=== PATIENT | female | born 1980 | race Caucasian/White ===

== ENCOUNTER → 2016-04-10 | Outpatient (CLI) | payer OTHER ==
[2016-04-10 16:01] LABS: Prolactin 7.7 ng/mL (3.0-18.6)
== END | disposition home or self-care (01) ==
LOC: LABWHC1 14:59
PROVIDERS: ATTEND Obstetrics & Gynecology
DX: O92.6 Galactorrhea (principal); Z3A.00 Weeks of gestation of pregnancy not specified
CPT/HCPCS: 36415; 84146; 84403; 84439; 84443

== ENCOUNTER 2016-06-14 16:57 | Emergency (ER) | payer OTHER ==
[2016-06-14] MEDS ORDERED: SODIUM CHLORIDE 0.9% 1,000 ML IV STA (17:23)
[2016-06-14] MEDS ORDERED: IPRATROPIUM-ALBUTEROL 3 ML NEB INHALATION STA (17:24)
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
[2016-06-14 17:41] LABS: Basophils # (A) 0.1 k/uL (0-0.2); Basophils % (A) 1 %; CH 29.3; CHCM 35.5; Eosinophils % (A) 1 %; HCT 42.5 % (34.0-46.0); HDW 2.99; HGB 14.4 gm/dL (11.4-16.0); Luc # (Auto) 0.23; Luc % (Auto) 4; Lymphocytes # (A) 1.8 k/uL (1.0-4.8); Lymphocytes % (A) 28 %; MCH 28.1 pg (25.0-35.0); MCHC 33.9 g/dL (31.0-37.0); MCV 82.9 fL (80.0-100.0); Monocytes # (A) 0.5 k/uL (0-1.0); Monocytes % (A) 7 %; Neutrophils # (A) 3.8 k/uL (1.3-7.7); Neutrophils % (A) 60 %; RBC 5.13 m/uL (3.80-5.40); RDW 13.1 % (11.5-15.5); WBC 6.4 k/uL (3.8-10.6); WBC (Perox) 6.34
[2016-06-14 17:49] LABS: Appearance,Urine Clear (Clear); Bilirubin,Urine Negative (Negative); Glucose,Urine (UA) Negative (Negative); Ketones,Urine Negative (Negative); Leukocyte Esterase,Urine Negative (Negative); Nitrite,Urine Negative (Negative); PH, Urine 6.5 (5.0-8.0); Protein,Urine Negative (Negative); Specific Gravity,Urine 1.009 (1.001-1.035); UA Billing (MACRO vs. MICRO) CHEM; Urobilinogen,Urine <2.0 mg/dL (<2.0)
[2016-06-14 17:54] LABS: Anion Gap 10 mmol/L; Blood Urea Nitrogen 8 mg/dL (7-17); Calcium 9.5 mg/dL (8.4-10.2); Carbon Dioxide 28 mmol/L (22-30); Chloride 101 mmol/L (98-107); Glucose 105 mg/dL (74-99); Magnesium 1.6 mg/dL (1.6-2.3); Non-African American GFR(MDRD) >60 (>60 ml/min/1.73 sqM); Potassium 4.4 mmol/L (3.5-5.1); Sodium 139 mmol/L (137-145)
[2016-06-14] MEDS ORDERED: KETOROLAC 30 MG/ML 1 ML VIAL IVP STA (18:10)
--- NOTE | 2016-06-14 18:52 | XR ---
EXAMINATION TYPE: XR chest 2V DATE OF EXAM: 06/14/2016 6:31 PM COMPARISON: NONE HISTORY: Tachycardia TECHNIQUE: Frontal and lateral views of the chest are obtained. FINDINGS: Heart and mediastinum are normal. Lungs are clear. Diaphragm is normal. There are no hilar masses. There is fusion surgery at the thoracolumbar junction. IMPRESSION: No active cardiopulmonary disease. Normal heart.
[2016-06-14] MEDS ORDERED: MAGNESIUM OXIDE 400 MG TAB PO STA (19:16)
[2016-06-14 19:33] VITALS: BP 116/68; PULSE 105; RESP 18; TEMP 97.3
== END 2016-06-14 19:42 | disposition home or self-care (01) ==
LOC: EC 16:57
DX: R00.0 Tachycardia, unspecified (principal); R07.89 Other chest pain; G89.29 Other chronic pain; M79.605 Pain in left leg; M79.604 Pain in right leg; F17.210 Nicotine dependence, cigarettes, uncomplicated; Z79.899 Other long term (current) drug therapy
CPT/HCPCS: 94640; 93005; 85379; 80048; 83735; 84484; 85025; 81003; 81025; 71020; 99285; 96374; 96361 ×2; J1885

== ENCOUNTER → 2016-08-06 | Outpatient (CLI) | payer OTHER ==
--- NOTE | 2016-08-06 09:36 | US ---
EXAMINATION TYPE: US abdomen complete DATE OF EXAM: 08/06/2016 8:27 AM COMPARISON: Renal ultrasound 08/14/2015 CLINICAL HISTORY: 35-year-old female with generalized abdominal pain. TECHNIQUE: Multiple sonographic images of the abdomen were obtained. FINDINGS: EXAM MEASUREMENTS: Liver Length: 13.5 cm Gallbladder Wall: 0.3 cm CBD: 0.9 cm Spleen: 9.7 cm Right Kidney: 10.0 x 4.2 x 4.2 cm Left Kidney: 10.4 x 4.3 x 4.4 cm Pancreas: Obscured by bowel gas Liver: Slight coarsened appearance could be on a technical basis. No focal lesion is seen. Gallbladder: No abnormal gallbladder distention, wall thickening, pericholecystic fluid, or shadowin g calculi. Evidence for sonographic Diego's sign: No CBD: Dilated. Spleen: wnl Right Kidney: No hydronephrosis Left Kidney: No hydronephrosis Upper IVC: Within normal limits Abd Aorta: Visualized portions appeared within normal limits IMPRESSION: 1. Coarsened appearance to the liver probably on a technical basis. Correlate to exclude nonspecific hepatocellular disease. 2. The bile duct is dilated. Correlate with alkaline phosphatase and bilirubin levels. ERCP or MRCP t o further evaluate as indicated. 3. No cholelithiasis or acute cholecystitis.
== END | disposition home or self-care (01) ==
LOC: RADUSWWP 08:06
PROVIDERS: ATTEND Family Medicine
DX: K83.8 Other specified diseases of biliary tract (principal); R10.9 Unspecified abdominal pain
CPT/HCPCS: 76700

== ENCOUNTER → 2016-08-15 | Outpatient (CLI) | payer OTHER ==
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
== END | disposition home or self-care (01) ==
LOC: RADMRIMAIN 16:19
PROVIDERS: ATTEND Psychiatry & Neurology Neurology
DX: M50.222 Other cervical disc displacement at C5-C6 level (principal); M54.5 Low back pain; Z98.890 Other specified postprocedural states
CPT/HCPCS: 72141; 72148

== ENCOUNTER 2016-09-16 22:08 | Emergency (ER) | payer OTHER ==
[2016-09-16 22:20] VITALS: RESP 18; TEMP 98.5
--- NOTE | 2016-09-16 22:45 | ED ---
Abdominal Pain HPI - General Chief Complaint: Abdominal Pain Stated Complaint: poss med reaction/abdominal pain Time Seen by Provider: 09/16/16 22:27 Source: patient Mode of arrival: ambulatory Limitations: no limitations - History of Present Illness Initial Comments: This patient is a 36-year-old woman who is complaining of abdominal pains that have been going on for 3 months. She describes to components to the abdominal pain. There is one type that is epigastric, burning, and intermittent. She states that she feels it is worse after she eats or after drinking certain things. She stopped drinking beer 2 weeks ago due to this pain. She also has been having some lower abdominal cramping and bloating that has been going on for number of months but worse the past couple of days. The patient did have some nausea and she vomited once last night but not today. Patient denies change in urination or bowel movements. She states that her last period was August 28 and that it was a little shorter than normal. MD Complaint: abdominal pain Onset/Timin -: month(s) Location: LLQ, RLQ, epigastric Migration to: no migration Severity: moderate Quality: fullness, burning Consistency: constant Improves With: nothing Worsens With: nothing Associated Symptoms: nausea, vomiting - Related Data LMP (females 10-50): 3 weeks Patient : No Home Medications Medication Instructions Recorded Confirmed HYDROcodone/APAP 10-325MG [[place] 1 tab PO BID PRN 09/16/16 09/16/16 10-325] Ibuprofen [Motrin] 600 mg PO Q8HR PRN 09/16/16 09/16/16 Multivitamins, Thera [Multivitamin 1 tab PO DAILY 09/16/16 09/16/16 (formulary)] Omeprazole 40 mg PO DAILY 09/16/16 09/16/16 Pregabalin [Lyrica] 150 mg PO BID 09/16/16 09/16/16 QUEtiapine [SEROquel] 200 mg PO HS 09/16/16 09/16/16 Previous Rx's Medication Instructions Recorded Dicyclomine [Bentyl] 20 mg PO QID #15 tablet 09/17/16 Allergies Allergy/AdvReac Type Severity Reaction Status Date / Time No Known Allergies Allergy Verified 09/16/16 22:54 Review of Systems ROS Statement: Those systems with pertinent positive or pertinent negative responses have been documented in the HPI. ROS Other: All systems not noted in ROS Statement are negative. Constitutional: Denies: fever, chills, weakness Respiratory: Denies: cough, dyspnea Cardiovascular: Denies: chest pain, palpitations, edema Gastrointestinal: Reports: as per HPI, abdominal pain, nausea, vomiting. Denies : diarrhea, constipation, hematemesis, melena, hematochezia Genitourinary: Denies: dysuria, hematuria, discharge, abnormal menses Musculoskeletal: Denies: back pain Skin: Denies: rash Neurological: Denies: headache, weakness, numbness Past Medical History Past Medical History: No Reported History Additional Past Medical History / Comment(s): insomnia, bilat leg nerve damage, pain arina legs to feet History of Any Multi-Drug Resistant Organisms: None Reported Past Surgical History: Back Surgery Additional Past Surgical History / Comment(s): titanium ernesto Past Anesthesia/Blood Transfusion Reactions: Motion Sickness Past Psychological History: ADD/ADHD Smoking Status: Current every day smoker Past Alcohol Use History: None Reported Additional Past Alcohol Use History / Comment(s): has smoked 10-15 years 10 cig/ day Past Drug Use History: None Reported - Past Family History Mother Family Medical History: No Reported History General Exam Limitations: no limitations General appearance: alert, in no apparent distress Head exam: Present: atraumatic, normocephalic Eye exam: Present: normal appearance. Absent: scleral icterus, conjunctival injection ENT exam: Present: normal oropharynx Respiratory exam: Present: normal lung sounds bilaterally. Absent: respiratory distress, wheezes, rales, rhonchi, stridor Cardiovascular Exam: Present: regular rate, normal rhythm, normal heart sounds. Absent: systolic murmur, diastolic murmur, rubs, gallop GI/Abdominal exam: Present: soft, normal bowel sounds. Absent: distended, tenderness, guarding, rebound, rigid, mass, pulsatile mass, hernia Extremities exam: Present: normal inspection, normal capillary refill. Absent: pedal edema, calf tenderness Back exam: Present: normal inspection. Absent: CVA tenderness (R), CVA tenderness (L) Skin exam: Present: warm, dry, intact, normal color. Absent: rash Course Vital Signs 09/16/16 22:17 Temperature 98.5 F Pulse Rate 98 Respiratory 18 Rate Blood Pressure 140/87 O2 Sat by Pulse 97 Oximetry Medical Decision Making - Lab Data Result diagrams: 09/16/16 22:30 09/16/16 22:30 Lab Results 09/16/16 09/16/16 09/16/16 Range/Units 22:30 22:30 22:45 WBC 5.2 (3.8-10.6) k/uL RBC 4.62 (3.80-5.40) m/uL Hgb 13.1 (11.4-16.0) gm/dL Hct 37.2 (34.0-46.0) % MCV 80.5 (80.0-100.0) fL MCH 28.3 (25.0-35.0) pg MCHC 35.1 (31.0-37.0) g/dL RDW 13.6 (11.5-15.5) % Plt Count 237 (150-450) k/uL Neutrophils % 48 % Lymphocytes % 36 % Monocytes % 8 % Eosinophils % 3 % Basophils % 1 % Neutrophils # 2.5 (1.3-7.7) k/uL Lymphocytes # 1.9 (1.0-4.8) k/uL Monocytes # 0.4 (0-1.0) k/uL Eosinophils # 0.1 (0-0.7) k/uL Basophils # 0.1 (0-0.2) k/uL Sodium 140 (137-145) mmol/L Potassium 3.8 (3.5-5.1) mmol/L Chloride 104 (98-107) mmol/L Carbon Dioxide 26 (22-30) mmol/L Anion Gap 10 mmol/L BUN 7 (7-17) mg/dL Creatinine 0.60 (0.52-1.04) mg/dL Est GFR (MDRD) Af Amer >60 (>60 ml/min/1.73 sqM) Est GFR (MDRD) Non-Af >60 (>60 ml/min/1.73 sqM) Glucose 99 (74-99) mg/dL Calcium 9.4 (8.4-10.2) mg/dL Total Bilirubin 0.4 (0.2-1.3) mg/dL AST 27 (14-36) U/L ALT 51 (9-52) U/L Alkaline Phosphatase 77 (38-126) U/L Total Protein 7.5 (6.3-8.2) g/dL Albumin 4.3 (3.5-5.0) g/dL Amylase 59 (30-110) U/L Lipase 80 (23-300) U/L Urine Color Yellow Urine Appearance Clear (Clear) Urine pH 6.5 (5.0-8.0) Ur Specific [place] 1.013 (1.001-1.035) Urine Protein Negative (Negative) Urine Glucose (UA) Negative (Negative) Urine Ketones Negative (Negative) Urine Blood Negative (Negative) Urine Nitrite Negative (Negative) Urine Bilirubin Negative (Negative) Urine Urobilinogen <2.0 (<2.0) mg/dL Ur Leukocyte Esterase Negative (Negative) Serum Alcohol <10 mg/dL Disposition Clinical Impression: Abdominal pain, Constipation Disposition: HOME SELF-CARE Condition: Good Instructions: Abdominal Pain (ED) Prescriptions: Dicyclomine [Bentyl] 20 mg PO QID #15 tablet Referrals: Matthew Nicolas MD [Primary Care Provider] - 1-2 days June Espinoza MD [STAFF PHYSICIAN] - 1-2 days
[2016-09-16] MEDS ORDERED: DICYCLOMINE 20 MG TAB PO STA (22:47)
[2016-09-16 22:57] LABS: Basophils # (A) 0.1 k/uL (0-0.2); Basophils % (A) 1 %; CHCM 36.1; Eosinophils # (A) 0.1 k/uL (0-0.7); Eosinophils % (A) 3 %; HCT 37.2 % (34.0-46.0); HDW 2.99; HGB 13.1 gm/dL (11.4-16.0); Luc # (Auto) 0.21; Luc % (Auto) 4; Lymphocytes # (A) 1.9 k/uL (1.0-4.8); Lymphocytes % (A) 36 %; MCH 28.3 pg (25.0-35.0); MCHC 35.1 g/dL (31.0-37.0); MCV 80.5 fL (80.0-100.0); Mean Platelet Volume 6.8; Monocytes # (A) 0.4 k/uL (0-1.0); Monocytes % (A) 8 %; Neutrophils # (A) 2.5 k/uL (1.3-7.7); Neutrophils % (A) 48 %; RBC 4.62 m/uL (3.80-5.40); RDW 13.6 % (11.5-15.5); WBC 5.2 k/uL (3.8-10.6)
[2016-09-16 23:08] LABS: ALT 51 U/L (9-52); AST 27 U/L (14-36); Alcohol <10 mg/dL; Alkaline Phosphatase 77 U/L (38-126); Amylase 59 U/L (30-110); Anion Gap 10 mmol/L; Blood Urea Nitrogen 7 mg/dL (7-17); Calcium 9.4 mg/dL (8.4-10.2); Carbon Dioxide 26 mmol/L (22-30); Chloride 104 mmol/L (98-107); Glucose 99 mg/dL (74-99); Non-African American GFR(MDRD) >60 (>60 ml/min/1.73 sqM); Potassium 3.8 mmol/L (3.5-5.1); Sodium 140 mmol/L (137-145); Total Bilirubin 0.4 mg/dL (0.2-1.3); Total Protein 7.5 g/dL (6.3-8.2)
[2016-09-16 23:22] LABS: Appearance,Urine Clear (Clear); Bilirubin,Urine Negative (Negative); Glucose,Urine (UA) Negative (Negative); Ketones,Urine Negative (Negative); Leukocyte Esterase,Urine Negative (Negative); Nitrite,Urine Negative (Negative); PH, Urine 6.5 (5.0-8.0); Protein,Urine Negative (Negative); Specific Gravity,Urine 1.013 (1.001-1.035); UA Billing (MACRO vs. MICRO) CHEM; Urobilinogen,Urine <2.0 mg/dL (<2.0)
--- NOTE | 2016-09-17 00:01 | XR ---
EXAM: XR Abdomen Complete, 2 or More Views CLINICAL HISTORY: Pain TECHNIQUE: Frontal view of the abdomen/pelvis with upright view of the abdomen. COMPARISON: X-ray dated 03/27/2015 FINDINGS: Intraperitoneal space: No free air. Gastrointestinal tract: Moderate stool noted throughout the colon. Nonobstructive bowel gas pattern. Organs: Punctate calcification within the lower right hemipelvis, likely a phlebolith. Bones/joints: Postsurgical changes are noted with the thoracolumbar spine. IMPRESSION: No acute findings.
[2016-09-17] MEDS ORDERED: PEG 3350-NA SULF,BICARB,CL/KCL 4,000 ML BOTTLE PO ONE (00:10)
[2016-09-17 00:25] VITALS: BP 135/87; PULSE 80
== END 2016-09-17 00:24 | disposition home or self-care (01) ==
LOC: EC 22:08
DX: K59.00 Constipation, unspecified (principal); R10.13 Epigastric pain; R11.2 Nausea with vomiting, unspecified; R10.31 Right lower quadrant pain; R10.32 Left lower quadrant pain; F17.210 Nicotine dependence, cigarettes, uncomplicated; Z79.899 Other long term (current) drug therapy
CPT/HCPCS: 36415; 74020; 80053; 80320; 81003; 82150; 83690; 85025; 87086; 99284

== ENCOUNTER → 2016-11-14 | Outpatient (CLI) | payer OTHER ==
--- NOTE | 2016-11-14 23:47 | MR ---
EXAMINATION TYPE: MR thoracic spine wo/w con DATE OF EXAM: 11/14/2016 COMPARISON: NONE HISTORY: Previous Surgery Multihance 20 CONTRAST: Standard multiplanar, multisequence MRI departmental protocol utilizing 12 mL intravenous MultiHance gadolinium contrast. FINDINGS: The thoracic vertebra have normal alignment. I see no compression fracture. There is abnorm al increased signal in the lower thoracic spinal cord at T11-T12 level. There is metal artifact from anterior fusion surgery at T11-12. There is posterior T11-12 disc herniation impinging on the spinal canal to some degree at the level of the first fluid signal. The remainder of the thoracic spinal can al appears normal. There is no paraspinal mass. Contrast images show no pathologic enhancement. Canal is narrowed to 7 m m at the T11-12 level. IMPRESSION: There is posterior disc herniation at T11-12 at the level of the left side anterior spinal fusion jose naz. There is resultant 7 mm spinal stenosis. 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 No fracture. Disc herniation appears wo rse than the MR scan of 08/15/2016. CT myelogram would be helpful for further evaluation if clinically indicated.
== END | disposition home or self-care (01) ==
LOC: RADMRIMAIN 11:41
PROVIDERS: ATTEND Psychiatry & Neurology Neurology
DX: M48.04 Spinal stenosis, thoracic region (principal); M51.24 Other intervertebral disc displacement, thoracic region; G95.89 Other specified diseases of spinal cord; Z98.1 Arthrodesis status
CPT/HCPCS: 72157; A9577

== ENCOUNTER → 2016-12-12 | Outpatient (CLI) | payer OTHER ==
[2016-12-12 18:08] LABS: Appearance,Urine Clear (Clear); Bilirubin,Urine Negative (Negative); Glucose,Urine (UA) Negative (Negative); Ketones,Urine Negative (Negative); Leukocyte Esterase,Urine Negative (Negative); Nitrite,Urine Negative (Negative); Protein,Urine Negative (Negative); Specific Gravity,Urine 1.004 (1.001-1.035); UA Billing (MACRO vs. MICRO) CHEM; Urobilinogen,Urine <2.0 mg/dL (<2.0)
--- NOTE | 2016-12-12 18:10 | US ---
EXAMINATION TYPE: US bladder DATE OF EXAM: 12/12/2016 COMPARISON: NONE CLINICAL HISTORY: R33.9 RETENTION OF URINE. UTI EXAM MEASUREMENTS: Volume:221.5 ml Post Void Residual Volume: 0 mL Patient emptied bladder completely IMPRESSION: The prevoid estimated bladder volume is 221 mL and there is satisfactory emptying after voiding. No bladder mass seen.
== END | disposition home or self-care (01) ==
LOC: RADUSWWP 16:22
PROVIDERS: ATTEND Family Medicine
DX: R33.9 Retention of urine, unspecified (principal); N39.0 Urinary tract infection, site not specified
CPT/HCPCS: 76857; 81003; 87086

== ENCOUNTER → 2017-02-12 | Outpatient (CLI) | payer OTHER ==
[2017-02-11 16:34] VITALS: BMI 21.9
[2017-02-12 12:53] VITALS: RESP 16
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
== END ==
LOC: PNWHC3 12:32
PROVIDERS: ATTEND Anesthesiology
DX: M51.26 Other intervertebral disc displacement, lumbar region (principal); Z79.891 Long term (current) use of opiate analgesic; Z79.899 Other long term (current) drug therapy
CPT/HCPCS: 99211

== ENCOUNTER 2017-02-19 09:46 | Inpatient (IN) | payer OTHER ==
[2017-02-19 11:24] LABS: Appearance,Urine Cloudy (Clear); Bacteria,Urine Rare /hpf; Bilirubin,Urine Negative (Negative); Glucose,Urine (UA) Negative (Negative); Ketones,Urine 1+ (Negative); Leukocyte Esterase,Urine Negative (Negative); Mucus,Urine Occasional /hpf; Nitrite,Urine Negative (Negative); Particle Count 12675; Protein,Urine 1+ (Negative); RBC,Urine 2 /hpf (0-5); Specific Gravity,Urine 1.023 (1.001-1.035); Squamous Epithelial Cell,Urine 8 /hpf (0-4); UA Billing (MACRO vs. MICRO) MICRO; Urobilinogen,Urine <2.0 mg/dL (<2.0); WBC,Urine 1 /hpf (0-5)
[2017-02-19 11:45] LABS: ALT 38 U/L (9-52); AST 43 U/L (14-36); Alkaline Phosphatase 77 U/L (38-126); Amylase 63 U/L (30-110); Anion Gap 11 mmol/L; Blood Urea Nitrogen 10 mg/dL (7-17); Calcium 9.6 mg/dL (8.4-10.2); Carbon Dioxide 23 mmol/L (22-30); Chloride 105 mmol/L (98-107); Glucose 92 mg/dL (74-99); Non-African American GFR(MDRD) >60 (>60 ml/min/1.73 sqM); Potassium 4.7 mmol/L (3.5-5.1); Sodium 139 mmol/L (137-145); Total Bilirubin 0.3 mg/dL (0.2-1.3); Total Protein 8.4 g/dL (6.3-8.2)
--- NOTE | 2017-02-19 11:45 | ED ---
General Adult HPI <Felipe Mims - Last Filed: 02/19/17 13:22> - General Source: patient, RN notes reviewed Mode of arrival: ambulatory Limitations: language barrier <Phillip Kelley - Last Filed: 02/19/17 13:29> - General Chief complaint: Abdominal Pain Stated complaint: LEFT SIDE PAIN, VOMITING X 1 WEEK Time Seen by Provider: 02/19/17 10:25 - History of Present Illness Initial comments: Patient is a 36-year-old female who presents emergency room today with a chief complaint of abdominal pain off-and-on over the last week. Patient does admit that seems to be worse after she eats. She states that she gets pain in the upper abdomen greatest on the right side. Patient admits to feeling nauseated and having vomiting. Admits to diarrhea. Denies any other complaints or symptoms. Patient denies any recent fever, chills, shortness of breath, chest pain, back pain, numbness or tingling, dysuria or hematuria, constipation, headaches or visual changes, or any other complaints. (Phillip Kelley) - Related Data Home Medications Medication Instructions Recorded Confirmed Multivitamins, Thera [Multivitamin 1 tab PO DAILY 09/16/16 02/19/17 (formulary)] Omeprazole 40 mg PO DAILY 09/16/16 02/19/17 Pregabalin [Lyrica] 150 mg PO BID 09/16/16 02/19/17 LORazepam [Ativan] 0.5 mg PO BID 02/11/17 02/19/17 Naproxen 500 mg PO BID PRN 02/11/17 02/19/17 Zolpidem [Ambien] 5 mg PO HS 02/11/17 02/19/17 Allergies Allergy/AdvReac Type Severity Reaction Status Date / Time trazodone AdvReac Itching Verified 02/19/17 10:27 Review of Systems ROS Other: All systems not noted in ROS Statement are negative. <Felipe Mims - Last Filed: 02/19/17 13:22> ROS Other: All systems not noted in ROS Statement are negative. <Phillip Kelley - Last Filed: 02/19/17 13:29> ROS Statement: Those systems with pertinent positive or pertinent negative responses have been documented in the HPI. Past Medical History Past Medical History: GERD/Reflux Additional Past Medical History / Comment(s): insomnia, bilat leg nerve damage, pain arina legs to feet History of Any Multi-Drug Resistant Organisms: None Reported Past Surgical History: Back Surgery Additional Past Surgical History / Comment(s): titanium ernesto insertion back Past Anesthesia/Blood Transfusion Reactions: Motion Sickness Past Psychological History: Anxiety, Depression, PTSD Smoking Status: Current every day smoker Past Alcohol Use History: None Reported Past Drug Use History: None Reported - Past Family History Mother Family Medical History: No Reported History <Phillip Kelley - Last Filed: 02/19/17 13:29> General Exam <Felipe Mims - Last Filed: 02/19/17 13:22> Limitations: language barrier <Phillip Kelley - Last Filed: 02/19/17 13:29> - General Exam Comments Initial Comments: General: The patient is awake and alert, in no distress, and does not appear acutely ill. Eye: Pupils are equal, round and reactive to light, extra-ocular movements are intact. No nystagmus. There is normal conjunctiva bilaterally. No signs of icterus. Ears, nose, mouth and throat: There are moist mucous membranes and no oral lesions. Neck: The neck is supple, there is no tenderness or JVD. Cardiovascular: There is a regular rate and rhythm. No murmur, rub or gallop is appreciated. Respiratory: Lungs are clear to auscultation, respirations are non-labored, breath sounds are equal. No wheezes, stridor, rales, or rhonchi. Gastrointestinal: Normal appearance them. Normal bowel sounds. Abdomen soft on palpation. Patient does have tenderness mildly in the epigastric increased were ordered. No rebound tenderness. No Guarding. No CVA tenderness. Musculoskeletal: Normal ROM, no tenderness. Strength 5/5. Sensation intact. Pulses equal bilaterally 2+. Neurological: A&O x 3. CN II-XII intact, There are no obvious motor or sensory deficits. Coordination appears grossly intact. Speech is normal. Skin: Skin is warm and dry and no rashes or lesions are noted. Psychiatric: Cooperative, appropriate mood & affect, normal judgment. (Phillip Kelley) Course <Felipe Mims - Last Filed: 02/19/17 13:22> <Phillip Kelley - Last Filed: 02/19/17 13:29> Vital Signs 02/19/17 02/19/17 10:16 13:24 Temperature 97.8 F 98.2 F Pulse Rate 105 H 92 Respiratory 17 18 Rate Blood Pressure 131/78 140/87 O2 Sat by Pulse 98 99 Oximetry - Reevaluation(s) Reevaluation #1: 02/19/17 13:22 PA supervision: I personally do a [id number] evaluation of this patient and did discuss the findings with her. She does demonstrate evidence of acute cholecystitis with right upper quadrant tenderness palpation. Ultrasound shows also evidence of a dilated common bile duct. Patient will be admitted place an IV antibiotics was surgical and GI consultation. (Felipe Mims) Medical Decision Making - Lab Data Result diagrams: 02/19/17 11:23 02/19/17 11:23 <Felipe Mims - Last Filed: 02/19/17 13:22> - Lab Data Result diagrams: 02/19/17 11:23 02/19/17 11:23 <Phillip Kelley - Last Filed: 02/19/17 13:29> - Medical Decision Making Patient's labs been reviewed and ultrasound shows evidence of dilated common bile duct with thickened gallbladder. Patient will be admitted for acute cholecystitis. Patient is wearing plan states understanding and is agreement. Case was discussed with nurse practitioner Radha will admit for Dr. Ybarra. Consult GI and general surgeon (Phillip Kelley) - Lab Data Lab Results 02/19/17 02/19/17 02/19/17 Range/Units 11:12 11:12 11:23 WBC (3.8-10.6) k/uL RBC (3.80-5.40) m/uL Hgb (11.4-16.0) gm/dL Hct (34.0-46.0) % MCV (80.0-100.0) fL MCH (25.0-35.0) pg MCHC (31.0-37.0) g/dL RDW (11.5-15.5) % Plt Count (150-450) k/uL Neutrophils % % Lymphocytes % % Monocytes % % Eosinophils % % Basophils % % Neutrophils # (1.3-7.7) k/uL Lymphocytes # (1.0-4.8) k/uL Monocytes # (0-1.0) k/uL Eosinophils # (0-0.7) k/uL Basophils # (0-0.2) k/uL Sodium 139 (137-145) mmol/L Potassium 4.7 (3.5-5.1) mmol/L Chloride 105 (98-107) mmol/L Carbon Dioxide 23 (22-30) mmol/L Anion Gap 11 mmol/L BUN 10 (7-17) mg/dL Creatinine 0.57 (0.52-1.04) mg/dL Est GFR (MDRD) Af Amer >60 (>60 ml/min/1.73 sqM) Est GFR (MDRD) Non-Af >60 (>60 ml/min/1.73 sqM) Glucose 92 (74-99) mg/dL Calcium 9.6 (8.4-10.2) mg/dL Total Bilirubin 0.3 (0.2-1.3) mg/dL AST 43 H (14-36) U/L ALT 38 (9-52) U/L Alkaline Phosphatase 77 (38-126) U/L Total Protein 8.4 H (6.3-8.2) g/dL Albumin 4.5 (3.5-5.0) g/dL Amylase 63 (30-110) U/L Lipase 82 (23-300) U/L Urine Color Yellow Urine Appearance Cloudy H (Clear) Urine pH 5.0 (5.0-8.0) Ur Specific Lowry 1.023 (1.001-1.035) Urine Protein 1+ H (Negative) Urine Glucose (UA) Negative (Negative) Urine Ketones 1+ H (Negative) Urine Blood Trace H (Negative) Urine Nitrite Negative (Negative) Urine Bilirubin Negative (Negative) Urine Urobilinogen <2.0 (<2.0) mg/dL Ur Leukocyte Esterase Negative (Negative) Urine RBC 2 (0-5) /hpf Urine WBC 1 (0-5) /hpf Ur Squamous Epith Cells 8 H (0-4) /hpf Urine Bacteria Rare H (None) /hpf Urine Mucus Occasional H (None) /hpf Urine HCG, Qual Not Detected (Not Detectd) 02/19/17 Range/Units 11:23 WBC 5.0 (3.8-10.6) k/uL RBC 4.89 (3.80-5.40) m/uL Hgb 13.8 (11.4-16.0) gm/dL Hct 40.3 (34.0-46.0) % MCV 82.4 (80.0-100.0) fL MCH 28.1 (25.0-35.0) pg MCHC 34.2 (31.0-37.0) g/dL RDW 13.4 (11.5-15.5) % Plt Count 274 (150-450) k/uL Neutrophils % 58 % Lymphocytes % 27 % Monocytes % 7 % Eosinophils % 5 % Basophils % 1 % Neutrophils # 2.9 (1.3-7.7) k/uL Lymphocytes # 1.3 (1.0-4.8) k/uL Monocytes # 0.3 (0-1.0) k/uL Eosinophils # 0.2 (0-0.7) k/uL Basophils # 0.1 (0-0.2) k/uL Sodium (137-145) mmol/L Potassium (3.5-5.1) mmol/L Chloride (98-107) mmol/L Carbon Dioxide (22-30) mmol/L Anion Gap mmol/L BUN (7-17) mg/dL Creatinine (0.52-1.04) mg/dL Est GFR (MDRD) Af Amer (>60 ml/min/1.73 sqM) Est GFR (MDRD) Non-Af (>60 ml/min/1.73 sqM) Glucose (74-99) mg/dL Calcium (8.4-10.2) mg/dL Total Bilirubin (0.2-1.3) mg/dL AST (14-36) U/L ALT (9-52) U/L Alkaline Phosphatase (38-126) U/L Total Protein (6.3-8.2) g/dL Albumin (3.5-5.0) g/dL Amylase (30-110) U/L Lipase (23-300) U/L Urine Color Urine Appearance (Clear) Urine pH (5.0-8.0) Ur Specific Lowry (1.001-1.035) Urine Protein (Negative) Urine Glucose (UA) (Negative) Urine Ketones (Negative) Urine Blood (Negative) Urine Nitrite (Negative) Urine Bilirubin (Negative) Urine Urobilinogen (<2.0) mg/dL Ur Leukocyte Esterase (Negative) Urine RBC (0-5) /hpf Urine WBC (0-5) /hpf Ur Squamous Epith Cells (0-4) /hpf Urine Bacteria (None) /hpf Urine Mucus (None) /hpf Urine HCG, Qual (Not Detectd) Disposition <Felipe Mims - Last Filed: 02/19/17 13:22> Time of Disposition: 12:36 <Phillip Kelley - Last Filed: 02/19/17 13:29> Clinical Impression: Acute cholecystitis Disposition: ADMITTED IP TO THIS HOSP Condition: Good Referrals: Matthew Nicolas MD [Primary Care Provider] - 1-2 days
--- NOTE | 2017-02-19 11:46 | XR ---
EXAMINATION TYPE: XR KUB DATE OF EXAM: 02/19/2017 COMPARISON: NONE INDICATION: Upper abdominal pain and nausea and vomiting TECHNIQUE: Single view abdomen right FINDINGS: There is a nonspecific bowel gas pattern present. Nonspecific air-fluid levels are within the right l ower quadrant. No free air. Differential is present. Psoas margins are normal. No organomegaly is present. Postsurgical changes are present T12 L1 L2 IMPRESSION: 1. Nonspecific air-fluid levels within the right lower quadrant. Gastroenteritis could be considered.
[2017-02-19 11:47] LABS: Basophils # (A) 0.1 k/uL (0-0.2); Basophils % (A) 1 %; CH 28.7; Eosinophils # (A) 0.2 k/uL (0-0.7); Eosinophils % (A) 5 %; HCT 40.3 % (34.0-46.0); HDW 3.02; HGB 13.8 gm/dL (11.4-16.0); Luc # (Auto) 0.15; Luc % (Auto) 3; Lymphocytes # (A) 1.3 k/uL (1.0-4.8); Lymphocytes % (A) 27 %; MCH 28.1 pg (25.0-35.0); MCHC 34.2 g/dL (31.0-37.0); MCV 82.4 fL (80.0-100.0); Mean Platelet Volume 6.6; Monocytes # (A) 0.3 k/uL (0-1.0); Monocytes % (A) 7 %; Neutrophils # (A) 2.9 k/uL (1.3-7.7); Neutrophils % (A) 58 %; RBC 4.89 m/uL (3.80-5.40); RDW 13.4 % (11.5-15.5)
--- NOTE | 2017-02-19 12:25 | US ---
EXAMINATION TYPE: US abdomen limited DATE OF EXAM: 02/19/2017 COMPARISON: NONE CLINICAL HISTORY: Pain. RUQ pain, patient not NPO EXAM MEASUREMENTS: Liver Length: 14.5 cm Gallbladder Wall: 0.3 cm CBD: 0.9 cm Right Kidney: 10.5 x 3.9 x 5.1 cm Pancreas: limited evaluation due to overlying bowel content Liver: visualized portions appear wnl Gallbladder: no evidence of stones or biliary sludge. Evidence for sonographic Diego's sign: no CBD: dilated Right Kidney: no evidence of hydronephrosis or mass IMPRESSION: Dilated common bile duct up to 9 mm without sonographic evidence of cholelithiasis or cho ledocholithiasis. No current gallbladder wall thickening or pericholecystic fluid is seen. Findings a re therefore equivocal for acute cholecystitis and HIDA scan could be performed for further evaluatio n.
[2017-02-19] MEDS ORDERED: SODIUM CHLORIDE 0.9% 1,000 ML IV STA (12:53)
[2017-02-19] MEDS ORDERED: HYDROmorphone 1 MG/ML 1 ML SYRINGE IVP PRN (13:26)
[2017-02-19] MEDS ORDERED: ONDANSETRON 4 MG/2 ML VIAL IVP PRN (13:26)
[2017-02-19] MEDS ORDERED: LORazepam 2 MG/ML INJ IV PRN (13:26)
[2017-02-19] MEDS ORDERED: NALOXONE 0.4 MG/ML 1 ML VIAL IV PRN (13:26)
[2017-02-19] MEDS: HYDROmorphone 2 MG/ML 1 ML SYRINGE IVP PRN ×3 (15:23→21:15)
[2017-02-19] MEDS ORDERED: NICOTINE POLACRILEX 2 MG GUM BUCCAL PRN (16:32)
--- NOTE | 2017-02-19 17:13 | HP ---
HISTORY AND PHYSICAL DATE OF ADMISSION: 02/19/17 PRESENTING COMPLAINT: Nausea, vomiting, abdominal pain. HISTORY OF PRESENTING COMPLAINT: This is a 36-year-old patient of Dr. Nicolas. The patient's chronic stable medical condition includes peripheral neuropathy, insomnia, osteoarthritis in the spine. Overall progressively patient has been having more and more reflux symptoms, worsening with heartburn. TUMs was helping but now she is having more and more nausea and vomiting, unable to keep much down. Oral intake has really gone down. Patient feeling weak, tired, run down, also having increasing abdominal pain in the right upper quadrant epigastric area of the right side. Denies any fever. Because she gets really weak, tired, not able to keep anything down. She is getting admitted for the same. REVIEW OF SYSTEMS: CONSTITUTIONAL: Tired. HEENT: None. RESPIRATORY: None. CARDIOVASCULAR: None. GASTROINTESTINAL: As above. GENITOURINARY: None. MUSCULOSKELETAL: Chronic low back pain. DERMATOLOGICAL, HEMATOLOGIC, LYMPHATIC: None. PSYCHIATRY: Anxiety, difficulty sleeping. NEUROLOGICAL: Numbness and tingling in the feet. PAST HISTORY: GERD, osteoarthritis, lower spine, insomnia, peripheral neuropathy, anxiety, depression. PAST SURGICAL HISTORY: Back surgery. Titanium ernesto insertion. PSYCH HISTORY: Anxiety, depression, PTSD. SOCIAL HISTORY: The patient lives alone. Smoked a pack a day for last 17 years. No alcohol. No recreational drugs. FAMILY HISTORY: Reviewed, noncontributory to presentation. HOME MEDICATIONS: Ambien 5 mg q.h.s., Lyrica 150 mg p.o. b.i.d., omeprazole 40 mg p.o. daily, naproxen 500 mg p.o. b.i.d. p.r.n., multivitamin 1 tablet p.o. daily, Ativan 0.5 p.o. b.i.d. ALLERGIES: TRAZODONE. PHYSICAL EXAMINATION: Temperature 97.8, pulse 105, respirations 18, blood pressure 130/78, pulse ox 96% on room air. GENERAL APPEARANCE: Thin build, sitting up, tired-appearing. EYES: Pupils equal. Conjunctivae normal. HEENT: Oral cavity dry mucous membrane. NECK: JVD not raised. Mass not palpable. RESPIRATORY: Effort normal. Lungs fair entry. CARDIOVASCULAR: First and second sounds normal. No edema. ABDOMEN: Soft. Epigastric and right upper quadrant tenderness. No Diego sign. No guarding or rigidity. Liver and spleen not palpable. LYMPHATIC: No lymph nodes palpable in neck or axillae. PSYCHIATRY: Alert and oriented x3. Mood and affect anxious-appearing. NEUROLOGICAL: Pupils equal. Cranial nerves grossly intact. Power and sensation grossly intact. INVESTIGATIONS: White count 5, hemoglobin 13.8, platelets 274. Potassium 4.7, BUN and creatinine negative. Ultrasound of the abdomen showed dilated common bile duct 9 mm. No evidence of any gallstones. There is no other gallbladder findings. ASSESSMENT: 1. This is a patient who has had progressive symptoms for over a few weeks initially with GERD, getting worse, not able to keep any food down food makes the pain worse. This appears most to be a combination of gastritis and peptic ulcer disease. Gallbladder disease appears to be possible but less likely and also the fact that the patient has been taking NSAIDs. 2. Severe gastroesophageal reflux disease. 3. Lower back pain, osteoarthritis. 4. Chronic insomnia. 5. Peripheral neuropathy idiopathic. 6. Anxiety, depression, not otherwise specified. 7. Chronic nicotine dependence. Patient is a smoker. PLAN: Patient started on IV fluids, will be made n.p.o. except for ice chips. Will DC the naproxen. Give PPI. The patient will need a EGD at least though I doubt this is a gallbladder. Will use a heating pad, K-pad for back pain and also may use Tylenol 3 for pain. The patient advised against smoking. Given a nicotine patch. MMODL / IJN: [id number] /
[2017-02-19] MEDS: PANTOPRAZOLE 40 MG/10 ML VIAL IVP SCH (18:11)
[2017-02-19] MEDS: ENOXAPARIN 40 MG/0.4 ML SYRINGE SQ SCH (18:12)
[2017-02-19] MEDS: NICOTINE 21MG/24HR PATCH TRANSDERM SCH (18:13)
[2017-02-19] MEDS ORDERED: ACETAMINOPHEN TAB 325 MG TAB PO PRN (20:51)
[2017-02-19] MEDS: PREGABALIN 75 MG CAP PO SCH (21:26)
[2017-02-19] MEDS: LORazepam 0.5 MG TAB PO SCH (21:26)
[2017-02-19] MEDS: ZOLPIDEM 5 MG TAB PO SCH (21:27)
[2017-02-20] MEDS: LACTATED RINGERS 1,000 ML IV SCH ×4 (00:22→23:57)
[2017-02-20] MEDS: HYDROmorphone 2 MG/ML 1 ML SYRINGE IVP PRN ×7 (00:27→23:14)
[2017-02-20] MEDS ORDERED: ACETAMINOPHEN IV (For NPO) 1,000 MG in EMPTY BAG 1 BAG IVPB ONE (06:02)
--- NOTE | 2017-02-20 06:05 | P.PN ---
Progress Note - Text Progress Note Date: 02/19/17 Patient seen and evaluated. Has acute cholecystitis. Plan for cholecystectomy tomorrow. Benefits and risks reviewed. NPO for tomorrow morning.
[2017-02-20 07:29] LABS: Basophils % (A) 1 %; CH 28.3; CHCM 33.8; Eosinophils # (A) 0.3 k/uL (0-0.7); Eosinophils % (A) 6 %; HCT 37.3 % (34.0-46.0); HDW 2.99; HGB 12.2 gm/dL (11.4-16.0); Luc # (Auto) 0.12; Luc % (Auto) 3; Lymphocytes # (A) 1.7 k/uL (1.0-4.8); Lymphocytes % (A) 37 %; MCH 27.6 pg (25.0-35.0); MCHC 32.8 g/dL (31.0-37.0); MCV 84.1 fL (80.0-100.0); Monocytes # (A) 0.3 k/uL (0-1.0); Monocytes % (A) 7 %; Neutrophils # (A) 2.2 k/uL (1.3-7.7); Neutrophils % (A) 48 %; RBC 4.44 m/uL (3.80-5.40); RDW 13.5 % (11.5-15.5); WBC 4.6 k/uL (3.8-10.6)
[2017-02-20 07:48] LABS: ALT 29 U/L (9-52); AST 22 U/L (14-36); Alkaline Phosphatase 57 U/L (38-126); Anion Gap 4 mmol/L; Blood Urea Nitrogen 7 mg/dL (7-17); Calcium 8.9 mg/dL (8.4-10.2); Carbon Dioxide 27 mmol/L (22-30); Chloride 106 mmol/L (98-107); Glucose 90 mg/dL (74-99); Non-African American GFR(MDRD) >60 (>60 ml/min/1.73 sqM); Potassium 4.5 mmol/L (3.5-5.1); Sodium 137 mmol/L (137-145); Total Bilirubin 0.2 mg/dL (0.2-1.3); Total Protein 6.6 g/dL (6.3-8.2)
[2017-02-20] MEDS: NICOTINE 21MG/24HR PATCH TRANSDERM SCH (08:37)
[2017-02-20] MEDS: LORazepam 0.5 MG TAB PO SCH ×2 (08:37→22:32)
[2017-02-20] MEDS: PANTOPRAZOLE 40 MG/10 ML VIAL IVP SCH (08:37)
[2017-02-20] MEDS: ENOXAPARIN 40 MG/0.4 ML SYRINGE SQ SCH (08:38)
--- NOTE | 2017-02-20 09:12 | P.GSCN ---
History of Present Illness Consult date: 02/19/17 Reason for Consult: Acute cholecystitis Requesting physician: Sumeet Ybarra History of present illness: CHIEF COMPLAINT: Cholecystitis HISTORY OF PRESENT ILLNESS: The patient is a 36-year-old female who presents with history of epigastric including right upper quadrant abdominal pain. She underwent diagnostic studies for her gallbladder. She reports a long-standing history of right upper quadrant abdominal pain. A recent attack occurred after eating pizza last night. She is to report severe epigastric including right upper quadrant abdominal pain. Separately her clinical picture is consistent with cholecystitis. Now she presents for surgical intervention. PAST MEDICAL HISTORY: Please see list PAST SURGICAL HISTORY: Please see list MEDICATIONS: Please see list ALLERGIES: Please see list. SOCIAL HISTORY: Has tobacco use FAMILY HISTORY: Pertinent for gallbladder disease REVIEW OF ORGAN SYSTEMS: CONSTITUTIONAL: No reports of fevers or chills. HEENT: Denies any troubles with the vision or hearing. ENDOCRINE: No reports of hypothyroidism. No diabetes. RESPIRATORY: No recent pneumonias. CARDIOVASCULAR: Denies chest pain or palpitations GI: No blood in stools or constipation. MUSCULOSKELETAL: Has occasional joint pain including back pain. NEURO: No seizure disorders or headaches. No recent stroke. History of chronic pain syndrome. PSYCH: No depression or suicidal ideation. History of anxiety. HEMATOLOGIC: No personal or family history of DVTs or pulmonary emboli. RHEUMATOLOGIS: No rheumatoid arthritis. SKIN: No active rash. No known history of MRSA. PHYSICAL EXAM: VITAL SIGNS: Afebrile vital signs stable GENERAL: Well-developed pleasant in no acute distress. HEENT: No scleral icterus. Extraocular movements grossly intact. Moist buccal mucosa. NECK: Supple without lymphadenopathy. CHEST: Unlabored respirations. Equal bilateral excursions. CARDIOVASCULAR: Regular rate regular rhythm rhythm. Distal 2+ pulses. ABDOMEN: Soft, distended. Tender along the epigastrium and right upper quadrant. MUSCULOSKELETAL: No clubbing, cyanosis, or edema. NEURO: Cranial nerves II to XII within normal limits. No focal or lateralizing signs. PSYCH: Alert and oriented to person, place and time. ASSESSMENT: 1. Epigastric and right upper quadrant abdominal pain 2. Chronic cholecystitis 3. Symptomatic gallstones. PLAN: 1. Will need a laparoscopic cholecystectomy possible open. Benefits and risks were described. 2. Heparin for DVT prophylaxis 5000 units. 3. Antibiotic prophylaxis. Past Medical History Past Medical History: GERD/Reflux, Osteoarthritis (OA) Additional Past Medical History / Comment(s): insomnia, bilat leg nerve damage, pain arina legs to feet History of Any Multi-Drug Resistant Organisms: None Reported Past Surgical History: Back Surgery Additional Past Surgical History / Comment(s): titanium ernesto insertion back Past Anesthesia/Blood Transfusion Reactions: Motion Sickness Smoking Status: Current every day smoker - Past Family History Mother Family Medical History: No Reported History Father History Unknown: Yes Medications and Allergies Home Medications Medication Instructions Recorded Confirmed Type Multivitamins, Thera [Multivitamin 1 tab PO DAILY 09/16/16 02/19/17 History (formulary)] Omeprazole 40 mg PO DAILY 09/16/16 02/19/17 History Pregabalin [Lyrica] 150 mg PO BID 09/16/16 02/19/17 History LORazepam [Ativan] 0.5 mg PO BID 02/11/17 02/19/17 History Naproxen 500 mg PO BID PRN 02/11/17 02/19/17 History Zolpidem [Ambien] 5 mg PO HS 02/11/17 02/19/17 History Allergies Allergy/AdvReac Type Severity Reaction Status Date / Time trazodone AdvReac Itching Verified 02/19/17 14:51 Surgical - Exam Vital Signs Temp Pulse Resp BP Pulse Ox 97.8 F 105 H 17 131/78 98 02/19/17 10:16 02/19/17 10:16 02/19/17 10:16 02/19/17 10:16 02/19/17 10:16 Results - Labs 02/20/17 06:17 02/20/17 06:17 Abnormal Lab Results - Last 24 Hours (Table) 02/19/17 02/19/17 Range/Units 11:12 11:23 AST 43 H (14-36) U/L Total Protein 8.4 H (6.3-8.2) g/dL Urine Appearance Cloudy H (Clear) Urine Protein 1+ H (Negative) Urine Ketones 1+ H (Negative) Urine Blood Trace H (Negative) Ur Squamous Epith Cells 8 H (0-4) /hpf Urine Bacteria Rare H (None) /hpf Urine Mucus Occasional H (None) /hpf Diabetes panel 02/19/17 Range/Units 11:23 Sodium 139 (137-145) mmol/L Potassium 4.7 (3.5-5.1) mmol/L Chloride 105 (98-107) mmol/L Carbon Dioxide 23 (22-30) mmol/L BUN 10 (7-17) mg/dL Creatinine 0.57 (0.52-1.04) mg/dL Glucose 92 (74-99) mg/dL Calcium 9.6 (8.4-10.2) mg/dL AST 43 H (14-36) U/L ALT 38 (9-52) U/L Alkaline Phosphatase 77 (38-126) U/L Total Protein 8.4 H (6.3-8.2) g/dL Albumin 4.5 (3.5-5.0) g/dL Calcium panel 02/19/17 Range/Units 11:23 Calcium 9.6 (8.4-10.2) mg/dL Albumin 4.5 (3.5-5.0) g/dL Pituitary panel 02/19/17 Range/Units 11:23 Sodium 139 (137-145) mmol/L Potassium 4.7 (3.5-5.1) mmol/L Chloride 105 (98-107) mmol/L Carbon Dioxide 23 (22-30) mmol/L BUN 10 (7-17) mg/dL Creatinine 0.57 (0.52-1.04) mg/dL Glucose 92 (74-99) mg/dL Calcium 9.6 (8.4-10.2) mg/dL Adrenal panel 02/19/17 Range/Units 11:23 Sodium 139 (137-145) mmol/L Potassium 4.7 (3.5-5.1) mmol/L Chloride 105 (98-107) mmol/L Carbon Dioxide 23 (22-30) mmol/L BUN 10 (7-17) mg/dL Creatinine 0.57 (0.52-1.04) mg/dL Glucose 92 (74-99) mg/dL Calcium 9.6 (8.4-10.2) mg/dL Total Bilirubin 0.3 (0.2-1.3) mg/dL AST 43 H (14-36) U/L ALT 38 (9-52) U/L Alkaline Phosphatase 77 (38-126) U/L Total Protein 8.4 H (6.3-8.2) g/dL Albumin 4.5 (3.5-5.0) g/dL
[2017-02-20] MEDS: PREGABALIN 75 MG CAP PO SCH ×2 (09:41→22:32)
--- NOTE | 2017-02-20 09:41 | P.PN ---
<Christine Mo - Last Filed: 02/20/17 09:32> Subjective Progress Note Date: 02/20/17 36-year-old female being seen sitting up in bed. Patient states continues to have right upper quadrant abdominal discomfort. Patient currently is denying any nausea vomiting. Patient is scheduled today for a lap cholecystectomy by surgical service Dr. Green. Patient states pain medication is effective for pain control. Patients being treated for cholecystitis patient states she' s been up ambulating from the bed to the bathroom. The white count this morning 4.6 hemoglobin 12.2 lytes within normal limits a febrile temp is 97.8 Objective - Vital Signs Vital signs: Vital Signs Temp 97.8 F 02/20/17 07:00 Pulse 86 02/20/17 07:00 Resp 16 02/20/17 07:00 BP 126/75 02/20/17 07:00 Pulse Ox 97 02/20/17 07:00 Intake & Output 02/19/17 02/20/17 02/20/17 18:59 06:59 18:59 Intake Total 1937.5 Balance 1937.5 Weight 56.699 kg Intake: Intake, IV Titration 1437.5 Amount Lactated Ringers 1,000 ml 1437.5 @ 125 mls/hr IV [facility] Rx#:[id number] Oral 500 Other: # Voids 3 1 - Exam GENERAL APPEARANCE: 36-year-old female patient is alert, oriented, in no acute distress. VITAL SIGNS: Reviewed HEENT: Head is normocephalic and atraumatic. Pupils are equal and reactive. The nares are patent. Oropharynx is clear without lesions. NECK: Supple without lymphadenopathy. Traches midline. HEART: S1, S2. Regular rate and rhythm. Denying chest pain LUNGS: No crackles or wheezes are heard. On room air sats are 97% ABDOMEN: Soft, slight tenderness right upper quadrant no nausea no vomiting nondistended with good bowel sounds. No peritoneal signs. No palpable organomegaly or masses. Urinating no difficulty EXTREMITIES: Normal skin color and turgor. No cyanosis, rash, ulceration, clubbing or edema. Radial pedal pulses are 2/4 bilaterally. NEUROLOGICAL: No focal deficits. Strength and sensation are grossly intact. - Labs CBC & Chem 7: 02/20/17 06:17 02/20/17 06:17 Labs: Abnormal Lab Results - Last 24 Hours (Table) 02/19/17 02/19/17 02/20/17 Range/Units 11:12 11:23 06:17 AST 43 H (14-36) U/L Total Protein 8.4 H (6.3-8.2) g/dL Albumin 3.4 L (3.5-5.0) g/dL Urine Appearance Cloudy H (Clear) Urine Protein 1+ H (Negative) Urine Ketones 1+ H (Negative) Urine Blood Trace H (Negative) Ur Squamous Epith Cells 8 H (0-4) /hpf Urine Bacteria Rare H (None) /hpf Urine Mucus Occasional H (None) /hpf Assessment and Plan Assessment: Impression Right upper quadrant pain likely due to acute cholecystitis Ultrasound abdomen showed dilated common bile duct with thickening of the gallbladder Plan Patient is to be nothing by mouth for planned lap cholecystectomy this afternoon by Dr. Green Pain control DVT and GI prophylaxis The above impression and plan of care have been discussed and directed by signing physician. Christine Mo nurse practitioner acting as scribe for signing physician. <Kinga Green N - Last Filed: 02/20/17 20:14> Objective - Vital Signs Vital signs: Vital Signs Temp 98.8 F 02/20/17 14:52 Pulse 77 02/20/17 18:24 Resp 18 02/20/17 18:24 BP 141/94 02/20/17 18:24 Pulse Ox 99 02/20/17 18:24 Intake & Output 02/20/17 02/20/17 02/21/17 06:59 18:59 06:59 Intake Total 1937.5 1500 Balance 1937.5 1500 Intake: IV 1500 Lactated Ringers 1,000 ml 1000 @ 125 mls/hr IV .Q8H [facility] Rx#:[id number] Intake, IV Titration 1437.5 Amount Lactated Ringers 1,000 ml 1437.5 @ 125 mls/hr IV .Q8[facility] Rx#:[id number] Oral 500 Other: # Voids 3 2 - Labs CBC & Chem 7: 02/20/17 06:17 02/20/17 06:17 Labs: Abnormal Lab Results - Last 24 Hours (Table) 02/20/17 Range/Units 06:17 Albumin 3.4 L (3.5-5.0) g/dL
[2017-02-20] MEDS: ceFAZolin IN SWFI 2 GM/20 ML SYRINGE IVP SCH ×3 (09:42→23:55)
--- NOTE | 2017-02-20 15:45 | P.PN ---
Progress Note - Text Progress Note Date: 02/20/17 DATE OF SERVICE: 02/20/2017 PRESENTING COMPLAINT: Abdominal pain with nausea and vomiting HISTORY OF PRESENT ILLNESS: 36-year-old female who has been having more reflux symptoms worsening heart burn. Calcium carbonate was helping but she continues to have more nausea and vomiting and unable to keep much food down. Ultrasound of the abdomen showed dilated common bile duct with no gallstones. Admitted for further evaluation. INTERVAL HISTORY: 02/20/2017: Patient seen in follow-up, continues to have abdominal pain and some nausea. Unable to keep much down. We'll likely have an EGD later today with possible cholecystectomy with Dr. Green. Diet remains nothing by mouth. REVIEW OF SYSTEMS: Done for constitutional ,cardiovascular, GI, pulmonary with relevant findings as above. CURRENT MEDICATIONS Tylenol, Kefzol, Lovenox, Dilaudid, Ativan, nicotine patch, nicotine gum, Protonix, Lyrica, Ambien. PHYSICAL EXAM VITAL SIGNS: Temperature 97.8, pulse 86, respiratory rate 16, blood pressure 126/75, oxygen saturation 97% on room air. GENERAL APPEARANCE: Lying in bed, not in distress. EYES: Pupils equal. Conjunctiva normal. NECK: JVD not raised. Mass not palpable. RESPIRATORY: Respiratory effort normal. Lungs clear to auscultation. CARDIOVASCULAR: First and second sounds normal. No edema. ABDOMEN: Soft. Liver and spleen not palpable. Mild tenderness to the right upper quadrant and epigastric region . No mass palpable. PSYCHIATRY: Alert and oriented x3. Mood and affect normal. INVESTIGATIONS: CBC and CMP unremarkable ASSESSMENT: -Acute abdominal pain, progressive worsening symptoms likely due to gastritis possible peptic ulcer disease in a patient who has been taking NSAIDs, gallbladder disease may be the cause but less likely -Severe gastroesophageal reflux disease. -Lower back pain, osteoarthritis. -Chronic insomnia. -Peripheral neuropathy idiopathic. -Anxiety depression not otherwise specified. -Chronic nicotine dependence patient is a smoker. PLAN: EGD and possible cholecystectomy, based on the findings of the EGD. Patient remains nothing by mouth we'll continue IV fluids and PPI. Plan of care discussed with the patient at the bedside we will follow closely. SALES SUPPORT COORDINATOR statement: Patient was seen and examined by nurse practitioner Radha Priest and all elements of the case discussed with attending Dr. Ybarra
--- NOTE | 2017-02-20 18:27 | P.HPADDEND ---
H&P Addendum H&P Addendum Date: 02/20/17 Upon request of admitting service, upper endoscopy evaluation is pending for reasons of gastric ulcers. We'll proceed with laparoscopic cholecystectomy including intraoperative esophagogastroduodenoscopy.
[2017-02-20] MEDS ORDERED: SUCCINYLCHOLINE CHLORIDE 100 MG/5 ML SYR IV ONE (18:54)
[2017-02-20] MEDS ORDERED: ROCURONIUM BROMIDE 10 MG/ML 10 ML VIAL IV ONE (18:54)
[2017-02-20] MEDS ORDERED: NEOSTIGMINE 1 MG/ML 10 ML VIAL ONE (18:54)
[2017-02-20] MEDS ORDERED: IV FLUID CONTINUATION 500 ML IV ONE (18:54)
[2017-02-20] MEDS ORDERED: LIDOCAINE 1% INJ 10MG/ML (20 ML MDV) ONE (18:54)
[2017-02-20] MEDS ORDERED: MIDAZOLAM 2 MG/2 ML VIAL ONE (18:54)
[2017-02-20] MEDS ORDERED: GLYCOPYRROLATE 0.2 MG/ML 2 ML VIAL ONE (18:54)
[2017-02-20] MEDS ORDERED: PROPOFOL 10 MG/ML 20 ML VIAL IV ONE (18:54)
[2017-02-20] MEDS ORDERED: fentaNYL (PF) 50 MCG/ML 2 ML AMP ONE (18:54)
[2017-02-20] MEDS ORDERED: BUPIVACAINE (PF) 0.25% 30 ML VIAL SQ ONE (19:22)
[2017-02-20] MEDS ORDERED: LACTATED RINGERS 1,000 ML IV ONE ×2 (19:48)
--- NOTE | 2017-02-20 20:18 | P.PCN ---
Date of Procedure: 02/20/17 Description of Procedure: SURGEON: JALEESA CAIN MD PLATING AND POINT ASSEMBLY SUPERVISOR: None. PREOPERATIVE DIAGNOSES: 1. Acute on chronic Cholecystitis. 2. Epigastric abdominal pain. 3. Gastroesophageal reflux disease. 4. Right upper quadrant abdominal pain. 5. Family history of gallbladder disorder. 6. History of tobacco abuse. 7. Pre-existing ileus with abdominal distention. 8. Chronic pain. POSTOPERATIVE DIAGNOSES: 1. Acute on chronic Cholecystitis. 2. Epigastric abdominal pain. 3. Gastroesophageal reflux disease. 4. Right upper quadrant abdominal pain. 5. Family history of gallbladder disorder. 6. History of tobacco abuse. 7. Pre-existing ileus with abdominal distention. 8. Chronic pain. 9. Colonic ileus. OPERATION: Laparoscopic cholecystectomy ANESTHESIA: General with 30 mL 0.25% Marcaine with epinephrine. ESTIMATED BLOOD LOSS: 5 mL. SPECIMENS REMOVED: Gallbladder. COMPLICATIONS: None. INDICATIONS: The patient is a 36-year-old male who presents with right upper quadrant abdominal pain and acute on chronic cholelcystitis. Surgical intervention with a laparoscopic cholecystectomy was described at length including injury to the biliary tree, bleeding, infection, need for further surgery. Informed consent was obtained. DESCRIPTION OF THE PROCEDURE: The patient was brought to the operating room, laid in supine position. After general induction, the abdomen was prepped and draped in a standard sterile fashion. Prior to incision, a timeout protocol was confirmed with surgical team regarding patient's name, procedure to be performed including preoperative medications for which he had received heparin 5000 units subcutaneously as well as bilateral SCDs for DVT prophylaxis. A transverse 5 mm incision was made above the umbilicus and off to the right of the midline. Please note the skin was localized prior to incision. A 0 degree 5-mm laparoscopic trocar entry was performed and entered into the peritoneal cavity. The abdomen was insufflated with 15 mmHg pressure which he tolerated well. Diagnostic laparoscopy confirmed no injury to bowel, viscera or mesentery. Adhesions were found about the gallbladder. No inguinal hernias were found. The liver serosa was completely unremarkable. Next, two 5 mm trocars were placed along the right costal margin followed by a 11 mm port at the left upper quadrant. The patient was placed in steep reverse Trendelenburg position with the right side up. The gallbladder fundus was retracted over the dome of the liver. Initial attention was brought to the infundibulum which was gently retracted in the inferior lateral approach. Using a Kittner, the cystic duct including the cystic artery was carefully skeletonized. Using a large clip meter maintenance person 2 clips were placed proximally, and 2 clip was placed distally along the cystic duct and then cut. Again care was taken to avoid any injury to the biliary tree as the common bile duct was clearly visualized during this portion of dissection. Next, the cystic artery was clipped twice proximally, once distally and then cauterized. Electro-Bovie cautery was used to remove the gallbladder from the hepatic fossa without decompression of the gallbladder. Hemostasis was checked and found to be adequate. The gallbladder was removed from the abdominal cavity using an Endo Catch bag and passed off for further pathological analysis. All instruments and pneumoperitoneum were removed from the abdominal cavity. The fascial defect was less than 8 mm for the 11-mm port site. The rest of incisions were reapproximated using 4-0 Monocryl in an interrupted subcuticular fashion. A total of 30 mL of 0.25% Marcaine with epinephrine was infiltrated to all wounds for postop analgesia. Dermabond was applied to the skin. At the end of the procedure, needle, sponge, and instrument count was verified correct by surgical appliance fitter. The patient had tolerated the procedure well and was taken to postanesthesia care unit in stable condition. FINDINGS: 1. Chronic cholecystitis with the adhesions about the gallbladder. 2. Unremarkable liver surface. 3. Moderate gaseous distended colon throughout the abdomen consistent with ileus adding complexity of the case.
[2017-02-20] MEDS ORDERED: METOCLOPRAMIDE 5 MG/ML 2 ML VIAL IVP PRN (20:20)
--- NOTE | 2017-02-20 20:20 | P.OP ---
Date of Procedure: 02/20/17 Description of Procedure: PREOPERATIVE DIAGNOSIS: Epigastric abdominal pain Gastric ulcers. POSTOPERATIVE DIAGNOSIS: Epigastric abdominal pain Chronic gastritis OPERATION: Esophagogastroduodenoscopy with biopsies along antrum. SURGEON: Kinga Green MD ANESTHESIA: MAC. INDICATIONS: The patient is a 36-year-old female who presents with a history of epigastric abdominal pain. Benefits and risks of the procedure were described. Informed consent was obtained. DESCRIPTION: The patient was brought into the endoscopy suite and laid in the left lateral decubitus position. An Olympus gastroscope was passed along the posterior oropharynx down to the distal esophagus where the squamocolumnar junction was encountered at 35 cm from the incisors. The stomach was entered and moderate bile reflux was found. Additional findings are listed below. Biopsies with cold forceps were obtained of the antrum. The first through third portion of the duodenum was examined and unremarkable. Retroflexion of the scope confirmed Hill grade II lower esophageal valve. The squamocolumnar junction demostrated chronic LA grade A erosive esophagitis. The stomach was desufflated. The patient tolerated the procedure well. FINDINGS: Squamocolumnar junction 37 cm from the incisors. Diaphragmatic hiatus at 37 cm from the incisors Hill grade II lower esophageal valve. LA grade A erosive esophagitis, mild. Acute and chronic gastritis along the antrum. No active duodenitis. RECOMMENDATIONS: Further recommendations pending results of pathology report. Upper endoscopy as needed.
[2017-02-20] MEDS: HYDROmorphone 2 MG/ML 1 ML SYRINGE IVP ONE ×2 (20:22→20:35)
[2017-02-20] MEDS ORDERED: HYDROmorphone 2 MG/ML 1 ML SYRINGE IVP ONE ×2 (20:45→20:53)
--- NOTE | 2017-02-20 21:05 | PN ---
PROGRESS NOTE DATE OF SERVICE: 02/20/2017. ATTENDING NOTE: Patient was seen examined by me. I discussed with my nurse practitioner, Ms. Priest. The patient presented with nausea, vomiting, severe reflux symptoms. This morning symptoms are still present, though a shade better. Patient is due for a cholecystectomy. I did convey to Dr. Green I would like to get EGD done, as I was suspicious for gastritis, and also rule out an ulcer. The patient is seen by me this morning. EXAMINATION: Temperature 97.8, pulse 86, respirations 16, blood pressure 126/75, pulse ox 97% on room air. Upper abdominal tenderness. No guarding, rigidity. ASSESSMENT: 1. Possible acute on chronic gastritis, rule out peptic ulcer disease. 2. Gallbladder disease suspected. PLAN: Patient is also going to have EGD today and possible cholecystectomy. MMODL / IJN: [id number] /
[2017-02-20] MEDS: ZOLPIDEM 5 MG TAB PO SCH (23:26)
[2017-02-21] MEDS: HYDROmorphone 2 MG/ML 1 ML SYRINGE IVP PRN ×2 (03:32→07:36)
[2017-02-21] MEDS: LACTATED RINGERS 1,000 ML IV SCH ×3 (06:16→16:07)
[2017-02-21] MEDS: ceFAZolin IN SWFI 2 GM/20 ML SYRINGE IVP SCH ×3 (07:40→23:28)
[2017-02-21] MEDS: ENOXAPARIN 40 MG/0.4 ML SYRINGE SQ SCH (07:45)
[2017-02-21] MEDS: PANTOPRAZOLE 40 MG/10 ML VIAL IVP SCH (07:45)
[2017-02-21] MEDS: NICOTINE 21MG/24HR PATCH TRANSDERM SCH (08:00)
[2017-02-21] MEDS: Acetaminophen-Codeine 300-30mg TAB PO PRN ×2 (11:24→18:08)
--- NOTE | 2017-02-21 12:18 | PN ---
PROGRESS NOTE DATE OF SERVICE: 02/21/2017 PRESENTING COMPLAINT: Abdominal surgery. INTERVAL HISTORY: Patient is status post cholecystectomy and some abdominal pain, has passed some flatus. Lying in bed. Has been on the liquid diet. Slight nausea. REVIEW OF SYSTEMS: Done for constitutional, cardiovascular GI pulmonary; relevant findings as above. CURRENT MEDICATIONS: Reviewed that include IV cefazolin. PHYSICAL EXAMINATION: Temperature 98.1, pulse 82, respiration 17, blood pressure 132/84, pulse ox 98%. GENERAL APPEARANCE: Lying in bed, tired-appearing. EYES: Pupils equal, conjunctivae normal. NECK: JVD not raised, mass not palpable. RESPIRATORY: Effort normal. LUNGS: Fair entry. CARDIOVASCULAR: First and second sounds normal, no edema. ABDOMEN: Slightly distended, soft. Tenderness present. No guarding or rigidity. Bowel sounds are present. PSYCHIATRY: Alert and oriented x3. Mood and affect slightly anxious-appearing. INVESTIGATIONS: White count 4.6, hemoglobin 12.2 potassium 4.5. ASSESSMENT: 1. Acute on chronic gastritis. 2. Acute on chronic cholecystitis, status post cholecystectomy. 3. Lower back pain, probably from osteoarthritis. 4. Chronic insomnia. 5. Peripheral neuropathy, idiopathic. 6. Anxiety, depression, not otherwise specified. 7. Chronic nicotine dependence patient is a smoker. PLAN: Diet is being advanced as per Surgery and they have advanced to a regular diet. Patient encouraged to be out of bed. Care was discussed with the patient. Hopefully, the patient can be discharged tomorrow. MMODL / IJN: [id number] /
--- NOTE | 2017-02-21 13:42 | P.PN ---
Subjective Progress Note Date: 02/21/17 Patient is status post laparoscopic cholecystectomy. She reports neck pain this morning. She is sore. She is tolerating diet. No reports of nausea or vomiting. Objective - Vital Signs Vital signs: Vital Signs Temp 99.4 F 02/21/17 07:00 Pulse 86 02/21/17 07:00 Resp 16 02/21/17 07:00 BP 115/73 02/21/17 07:00 Pulse Ox 98 02/21/17 04:34 Intake & Output 02/20/17 02/21/17 02/21/17 18:59 06:59 18:59 Intake Total 1500 300 Output Total 15 Balance 1500 285 Intake: IV 1500 300 Lactated Ringers 1,000 ml 1000 @ 125 mls/hr IV .Q8H RADHA Rx#:[id number] Output: Estimated Blood Loss 15 Other: # Voids 2 3 1 - Exam GENERAL: Well developed and in no acute distress. Pleasant. HEENT: No sclera icterus. Extraocular movements grossly intact. Moist buccal mucosa. Head is atraumatic, normocephalic. Hears conversational speech. No nasal drainage. NECK: Supple without lymphadenopathy. No JV distention. CHEST: Non-labored respirations and equal bilateral excursions. CARDIOVASCULAR: Regular rate and rhythm. ABDOMEN: Soft. Has decreased abdominal distention. No peritonitis. MUSCULOSKELETAL: No clubbing, cyanosis or edema. NEUROLOGIC: No focal or lateralizing signs. PSYCH: Anxious. SKIN: Good skin turgor. Well perfused. - Labs CBC & Chem 7: 02/20/17 06:17 02/20/17 06:17 Assessment and Plan (1) Gastroesophageal reflux Current Visit: Yes Status: Acute Code(s): K21.9 - GASTRO-ESOPHAGEAL REFLUX DISEASE WITHOUT ESOPHAGITIS SNOMED Code(s): 228663379 (2) Acute cholecystitis Current Visit: Yes Status: Acute Code(s): K81.0 - ACUTE CHOLECYSTITIS SNOMED Code(s): 61672515 (3) Chronic pain syndrome Current Visit: No Status: Chronic Code(s): G89.4 - CHRONIC PAIN SYNDROME SNOMED Code(s): 519827867 Plan: 1. Patient is tolerating diet. 2. Patient may be discharged home when medically stable.
[2017-02-21] MEDS: LORazepam 0.5 MG TAB PO SCH ×2 (13:45→20:22)
[2017-02-21] MEDS: PREGABALIN 75 MG CAP PO SCH ×2 (14:14→20:22)
[2017-02-21] MEDS: ZOLPIDEM 5 MG TAB PO SCH (20:22)
[2017-02-22] MEDS: LACTATED RINGERS 1,000 ML IV SCH ×2 (05:24→07:48)
[2017-02-22] MEDS: Acetaminophen-Codeine 300-30mg TAB PO PRN ×2 (05:48→14:18)
[2017-02-22] MEDS ORDERED: PANTOPRAZOLE 40 MG TABLET PO SCH (07:30)
[2017-02-22 07:38] VITALS: RESP 16
[2017-02-22] MEDS: ceFAZolin IN SWFI 2 GM/20 ML SYRINGE IVP SCH (07:52)
[2017-02-22] MEDS: ENOXAPARIN 40 MG/0.4 ML SYRINGE SQ SCH (07:52)
[2017-02-22] MEDS: NICOTINE 21MG/24HR PATCH TRANSDERM SCH (07:52)
[2017-02-22] MEDS: LORazepam 0.5 MG TAB PO SCH (07:53)
[2017-02-22] MEDS: PREGABALIN 75 MG CAP PO SCH (07:56)
[2017-02-22 16:14] VITALS: BP 125/80; PULSE 99; TEMP 99
--- NOTE | 2017-02-22 17:53 | P.DS ---
Providers Date of admission: 02/19/17 13:23 Expected date of discharge: 02/22/17 Attending physician: Sumeet Ybarra Consults: 02/19/17 13:26 Consult Physician Stat Consulting Provider: Kinga Green Consult Reason/Comments: cholecystitis Do you want consulting provider notified?: Yes Primary care physician: [facility] Course: FINAL DIAGNOSES: -Acute on chronic gastritis. -Acute on chronic cholecystitis, status post cholecystectomy. -Low back pain, probably from osteoarthritis. -Chronic insomnia. -Peripheral neuropathy, idiopathic. -Anxiety, depression, not otherwise specified. -Chronic nicotine dependence patient is a smoker. HOSPTIAL COURSE: 36-year-old female who presented with progressively worsening reflux symptoms. Imaging revealed dilated common bile duct with no evidence of any gallstones. Patient was admitted for the same, home medications reordered, surgery was consulted and EGD completed other diagnoses, patient found to have chronic gastritis and was subsequently taken for a laparoscopic cholecystectomy. Patient had an uneventful postoperative course, tolerating her diet, no reports of nausea or vomiting, ambulatory in the room and arriaga ways passing gas. Patient's overall condition is stabilized and is appropriate for discharge to home. PHYSICAL EXAM: CARDIOVASCULAR: First and second sounds noted no edema RESPIRATORY: Respiratory effort normal lung sounds clear to auscultation bilaterally GI: Abdomen soft tender to the right upper quadrant to palpation, liver and spleen not palpable. No guarding or rigidity MUSKULOSKELETAL: Ambulatory with a steady gait in the room and arriaga ways PSYCHIATRY: Alert and oriented 3 mood and affect appropriate for the situation Patient was seen and examined by nurse practitioner Radha Priest in all elements of the case discussed with attending Dr. Ybarra DISPOSITION: Discharge home Patient Condition at Discharge: Good Plan - Discharge Summary Discharge Rx Participant: No New Discharge Prescriptions: New Acetaminophen-Codeine 300-30mg [Tylenol w/codeine #3] 1 each PO Q6HR PRN #14 tab PRN Reason: Moderate Pain Nicotine 21Mg/24Hr Patch [Habitrol] 1 patch TRANSDERM DAILY #14 patch Continue Omeprazole 40 mg PO DAILY Multivitamins, Thera [Multivitamin (formulary)] 1 tab PO DAILY Pregabalin [Lyrica] 150 mg PO BID Zolpidem [Ambien] 5 mg PO HS LORazepam [Ativan] 0.5 mg PO BID Discontinued Naproxen 500 mg PO BID PRN PRN Reason: Pain Discharge Medication List Multivitamins, Thera [Multivitamin (formulary)] 1 tab PO DAILY 09/16/16 [History ] Omeprazole 40 mg PO DAILY 09/16/16 [History] Pregabalin [Lyrica] 150 mg PO BID 09/16/16 [History] LORazepam [Ativan] 0.5 mg PO BID 02/11/17 [History] Zolpidem [Ambien] 5 mg PO HS 02/11/17 [History] Acetaminophen-Codeine 300-30mg [Tylenol w/codeine #3] 1 each PO Q6HR PRN #14 tab 02/22/17 [Rx] Nicotine 21Mg/24Hr Patch [Habitrol] 1 patch TRANSDERM DAILY #14 patch 02/22/17 [ Rx] Follow up Appointment(s)/Referral(s): Matthew Nicolas MD [Primary Care Provider] - 3 Days Kinga Green MD [STAFF PHYSICIAN] - 02/24/17 (Please call to confirm time) Patient Instructions/Handouts: Low Fat Diet (GEN), Laparoscopic Cholecystectomy (DC), Gastroesophageal Reflux Disease (DC) Activity/Diet/Wound Care/Special Instructions: May shower. No bath tub soaks. No lifting over 4 pounds in 2 weeks. Discharge Disposition: HOME SELF-CARE
--- NOTE | 2017-02-25 04:49 | DS ---
DISCHARGE SUMMARY DATE OF SERVICE: 02/22/2017 ATTENDING NOTE: Patient was seen and examined by me. I discussed with nurse practitioner, Ms. Priest. The patient doing much better, up and about. Passed flatus, tolerating a diet. The patient is counseled against smoking yet again. ABDOMEN: Soft, minimal tenderness. Bowel sounds are present. The patient is more . LUNGS: Improved air entry. Followup is arranged. MMODL / IJN: [id number] /
== END 2017-02-22 16:25 | disposition home or self-care (01) | DRG 263 ==
LOC: EC 09:46 → 3SUR 13:23
PROVIDERS: ADMIT Hospitalist; ATTEND Hospitalist
PROC: 0FT44ZZ Resection of Gallbladder, Percutaneous Endoscopic Approach (ICD-10-PCS; principal; 2017-02-20 13:15)
PROC: 0DB68ZX Excision of Stomach, Via Natural or Artificial Opening Endoscopic, Diagnostic (ICD-10-PCS; principal; 2017-02-20 13:15)
DX: K81.0 Acute cholecystitis (principal); F33.9 Major depressive disorder, recurrent, unspecified; F41.9 Anxiety disorder, unspecified; F17.200 Nicotine dependence, unspecified, uncomplicated; K81.1 Chronic cholecystitis; F43.10 Post-traumatic stress disorder, unspecified; F51.04 Psychophysiologic insomnia; G62.9 Polyneuropathy, unspecified; G89.4 Chronic pain syndrome; K21.9 Gastro-esophageal reflux disease without esophagitis; K22.10 Ulcer of esophagus without bleeding; K29.00 Acute gastritis without bleeding; K29.50 Unspecified chronic gastritis without bleeding; K56.7 Ileus, unspecified; M47.9 Spondylosis, unspecified; Z79.899 Other long term (current) drug therapy
CPT/HCPCS: 36415; 74000; 76705; 80053; 81001; 81025; 82150; 83690; 85025; 88304; 88305; 88342; 96360; 99285

== ENCOUNTER 2017-03-16 09:43 | Day surgery (SDC) | payer OTHER ==
[2017-03-12 11:40] VITALS: BMI 22.4
[~2017-03-16 09:43] MED LIST: LACTATED RINGERS 1,000 ML IV SCH
[2017-03-16 10:22] VITALS: RESP 16; TEMP 97.3
[2017-03-16] MEDS ORDERED: LIDOCAINE 1% 20 ML VIAL (10MG/ML) FOR IV START INTRADERMA ONE (10:35)
--- NOTE | 2017-03-16 10:52 | P.PCN ---
Date of Procedure: 03/16/17 Surgeon: Raul Arias Pathology: none sent Condition: stable Disposition: PACU Description of Procedure: PREOPERATIVE DIAGNOSIS: 1-Lumbar radiculitis 2-Lumbar PLPS POSTOPERATIVE DIAGNOSIS: same PROCEDURE 1. Lumbar epidural steroid injection under fluoroscopic guidance at the L2-L3 level. 2. Lumbar epidurogram. ANESTHESIA: Local with 1% lidocaine; IV sedation with Versed/fentanyl. EBL: Minimal PROCEDURE INDICATION: The patient with low back pain and radiculitis symptoms unresponsive to conservative treatment. Fluoroscopy was used to optimize visualization of the needle placement and to maximize safety. No use of blood thinners. PROCEDURE DESCRIPTION / TECHNIQUE: The patient was seen and identified in the preoperative area. Risks, benefits, complications, and alternatives were discussed with the patient, including but not limited to bleeding, infection, nerve damage, allergic reactions to medications, and incomplete pain relief. The patient agreed to proceed with the procedure and signed the consent after all questions were answered. IV was started, and vital signs were stable. Patient was taken to the OR and time out was completed to confirm patient position, procedure, laterality of pain, and allergies. The patient was placed in the prone position on procedure table and a pillow was placed under the abdomen to reduce lumbar lordosis. The lumbosacral area was prepped and draped in the usual sterile fashion. Critical pause was taken. Vital signs were closely monitored during the procedure. Conscious sedation was used during the procedure to decrease patients anxiety. Using anterior-posterior fluoroscopy, the L2-L3 interlaminar space was identified and the skin over this site was marked and then infiltrated with 1% lidocaine subcutaneously. I chose this level because there was hardware placed from an anterior approach at all levels above that was obscuring the interlaminar opening at T11-T12, T12-L1, and L1-L2. Subsequently, a 20-gauge 3.5 -inch Tuohy epidural needle was inserted and advanced toward the epidural space using the Loss of resistance technique and guided by AP and lateral fluoroscopy. The correct needle position in the epidural space was verified with the injection of 2 mL of the water soluble contrast dye Omnipaque 300 contrast and observing an excellent epidurogram with the epidural spread of the dye, after negative aspiration for blood and CSF and in the absence of paresthesias. Again after negative aspiration, a 8 ml mixture containing 20 mg of PF Decadron and 4 ml of preservative free Normal Saline, and 2 ml of preservative free lidocaine 1% solution was injected and a washout of epidurogram was seen. Needle was withdrawn intact, skin was cleansed, and bandages were applied. COMPLICATIONS: None COMMENTS: DISPOSITION / PLANS: The patient was placed in a supine position and transferred to the recovery area in a stable condition for observation. There was no evidence of lower extremity motor or sensory deficit after the procedure. Patient was discharged from the recovery room after meeting discharge criteria. Home discharge instructions were given to the patient by the staff. The patient was reexamined prior to discharge and there were no issues. The patient will schedule a follow up in the clinic in 2-4 weeks.
[2017-03-16] MEDS ORDERED: IV FLUID CONTINUATION 1,000 ML IV ONE (10:59)
[2017-03-16 11:15] VITALS: BP 125/66; PULSE 83
--- NOTE | 2017-03-16 13:05 | FL ---
Fluoroscopy HISTORY: Pain 15 seconds fluoroscopy time supplied to the referring clinician. 3 intraoperative C-arm images docum ent the procedure. See dictated report from anesthesia.
== END 2017-03-16 11:57 | disposition home or self-care (01) ==
LOC: ORPAIN 09:43
PROVIDERS: ATTEND Anesthesiology
DX: G89.29 Other chronic pain (principal); M54.16 Radiculopathy, lumbar region; I10 Essential (primary) hypertension; F41.9 Anxiety disorder, unspecified; Z88.6 Allergy status to analgesic agent; Z88.5 Allergy status to narcotic agent; Z88.8 Allergy status to other drugs, medicaments and biological substances
CPT/HCPCS: 81025; 62323; J2250; J1100; Q9965; J3010; 99152

== ENCOUNTER → 2017-04-29 | Outpatient (CLI) | payer OTHER ==
[2017-04-29 16:40] LABS: HCT 36.5 % (34.0-46.0); MCH 26.8 pg (25.0-35.0); MCV 81.3 fL (80.0-100.0); Mean Platelet Volume 7.6; Platelet Count 235 k/uL (150-450); RBC 4.49 m/uL (3.80-5.40); RDW 14.6 % (11.5-15.5)
[2017-04-29 16:51] LABS: ALT 228 U/L (9-52); AST 139 U/L (14-36); Albumin 4.2 g/dL (3.5-5.0); Alkaline Phosphatase 178 U/L (38-126); Anion Gap 13 mmol/L; Blood Urea Nitrogen 6 mg/dL (7-17); Calcium 9.5 mg/dL (8.4-10.2); Carbon Dioxide 24 mmol/L (22-30); Chloride 103 mmol/L (98-107); Glucose 119 mg/dL (74-99); Potassium 4.3 mmol/L (3.5-5.1); Sodium 140 mmol/L (137-145); Total Bilirubin 0.4 mg/dL (0.2-1.3); Total Protein 7.7 g/dL (6.3-8.2)
[2017-04-29 17:08] LABS: T4, Free (Free Thyroxine) 1.17 ng/dL (0.78-2.19)
== END | disposition home or self-care (01) ==
LOC: LABWHC1 16:10
PROVIDERS: ATTEND Psychiatry & Neurology Neurology
DX: G25.81 Restless legs syndrome (principal)
CPT/HCPCS: 36415; 80053; 82607; 84439; 84443; 84481; 85027

== ENCOUNTER → 2017-05-26 | Outpatient (CLI) | payer OTHER ==
--- NOTE | 2017-05-26 08:55 | US ---
EXAMINATION TYPE: US abdomen complete DATE OF EXAM: 05/26/2017 COMPARISON: CT 05/11/2017 and ultrasound 02/19/2017 CLINICAL HISTORY: 36-year-old female Abnormal LFTs R94.5. Technique: Multiple sonographic images of the abdomen are obtained. FINDINGS: Liver Length: 15.7 cm Gallbladder: Surgically absent CBD: 0.7 cm Spleen: 9.8 cm Right Kidney: 10.0 x 4.9 x 3.9 cm Left Kidney: 11.2 x 4.2 x 3.5 cm Pancreas: Obscured by bowel gas, visualized portions show no abnormality Liver: Homogeneous appearance without focal lesion. Gallbladder: Surgically absent Evidence for sonographic Diego's sign: No CBD: wnl Spleen: wnl Right Kidney: No hydronephrosis. Left Kidney: No hydronephrosis. Upper IVC: wnl Abd Aorta: wnl IMPRESSION: Mild dilatation of the bile duct (7 mm) is decreased as compared to 02/19/2017 (9 mm) and is within a cceptable limits postcholecystectomy status. Correlate with alkaline phosphatase and bilirubin level s to confirm.
== END ==
LOC: RADUSWWP 07:04
PROVIDERS: ATTEND Family Medicine
DX: K82.8 Other specified diseases of gallbladder (principal); R94.5 Abnormal results of liver function studies; Z90.49 Acquired absence of other specified parts of digestive tract
CPT/HCPCS: 76700

== ENCOUNTER → 2017-06-23 | Outpatient (CLI) | payer OTHER ==
[2017-06-23 17:36] LABS: HCT 36.8 % (34.0-46.0); HGB 12.8 gm/dL (11.4-16.0); MCH 27.7 pg (25.0-35.0); MCHC 34.8 g/dL (31.0-37.0); MCV 79.5 fL (80.0-100.0); Mean Platelet Volume 7.5; Platelet Count 294 k/uL (150-450); RBC 4.64 m/uL (3.80-5.40); RDW 13.9 % (11.5-15.5); WBC 5.9 k/uL (3.8-10.6)
[2017-06-23 17:41] LABS: ALT 100 U/L (9-52); AST 37 U/L (14-36); Albumin 4.1 g/dL (3.5-5.0); Alkaline Phosphatase 151 U/L (38-126); Anion Gap 10 mmol/L; Blood Urea Nitrogen 11 mg/dL (7-17); Calcium 9.2 mg/dL (8.4-10.2); Carbon Dioxide 24 mmol/L (22-30); Chloride 107 mmol/L (98-107); Glucose 109 mg/dL (74-99); Potassium 4.3 mmol/L (3.5-5.1); Sodium 141 mmol/L (137-145); Total Bilirubin 0.3 mg/dL (0.2-1.3); Total Protein 7.6 g/dL (6.3-8.2)
== END | disposition home or self-care (01) ==
LOC: LABWHC1 16:43
DX: R10.11 Right upper quadrant pain (principal)
CPT/HCPCS: 36415; 80053; 85027

== ENCOUNTER 2017-07-18 23:57 | Emergency (ER) | payer OTHER ==
[2017-07-19 00:06] VITALS: TEMP 98.1
--- NOTE | 2017-07-19 00:23 | ED ---
General Adult HPI - General Chief complaint: Chest Pain Stated complaint: Chest pain,palpitations Time Seen by Provider: 07/19/17 00:00 Source: patient, family, RN notes reviewed Mode of arrival: ambulatory Limitations: no limitations - History of Present Illness Initial comments: This is a 36-year-old female presents emergency Department complaining that she' s had chest pain for a month. Patient states that sharp in nature and it somewhat tender to touch. Patient denies any difficulty breathing or radiation of the pain. Patient denies any shortness of breath. Patient denies any recent fever chills or cough. Patient denies any palpitations. Patient denies any calf pain or leg swelling. Patient denies abdominal pain patient denies nausea vomiting or diarrhea. Patient denies headache patient denies lightheadedness dizziness or near syncopal episode. - Related Data Home Medications Medication Instructions Recorded Confirmed Omeprazole 40 mg PO DAILY 09/16/16 07/19/17 Pregabalin [Lyrica] 150 mg PO BID 09/16/16 07/19/17 LORazepam [Ativan] 1 mg PO BID 02/11/17 07/19/17 Cetirizine HCl [Zyrtec] 10 mg PO DAILY 03/12/17 07/19/17 Docusate [Colace] 100 mg PO DAILY PRN 03/12/17 07/19/17 Prazosin [Minipress] 1 mg PO HS 03/12/17 07/19/17 HYDROcodone/APAP 10-325MG [[place] 1 tab PO Q6H PRN 04/14/17 07/19/17 10-325] Previous Rx's Medication Instructions Recorded Nicotine 21Mg/24Hr Patch [Habitrol] 1 patch TRANSDERM DAILY #14 patch 02/22/17 Allergies Allergy/AdvReac Type Severity Reaction Status Date / Time acetaminophen AdvReac Itching Verified 07/19/17 00:05 [From Tylenol-Codeine #3] codeine AdvReac Itching Verified 07/19/17 00:05 [From Tylenol-Codeine #3] trazodone AdvReac Itching Verified 07/19/17 00:05 Review of Systems ROS Statement: Those systems with pertinent positive or pertinent negative responses have been documented in the HPI. ROS Other: All systems not noted in ROS Statement are negative. Past Medical History Past Medical History: GERD/Reflux, Musculoskeletal Disorder, Osteoarthritis (OA) Additional Past Medical History / Comment(s): insomnia, lower back & neck pain; bilat leg nerve damage,pain arina legs to feet History of Any Multi-Drug Resistant Organisms: None Reported Past Surgical History: Back Surgery, Cholecystectomy Additional Past Surgical History / Comment(s): titanium ernesto insertion back Past Anesthesia/Blood Transfusion Reactions: Motion Sickness Past Psychological History: Anxiety, Depression, PTSD Smoking Status: Current every day smoker Past Alcohol Use History: None Reported Past Drug Use History: None Reported - Past Family History Mother Family Medical History: No Reported History Father History Unknown: Yes General Exam - General Exam Comments Initial Comments: GENERAL: Patient is well-developed and well-nourished. Patient is nontoxic and well- hydrated and is in no acute distress. ENT: Neck is soft and supple. No significant lymphadenopathy is noted. Oropharynx is clear. Moist mucous membranes. Neck has full range of motion without eliciting any pain. EYES: The sclera were anicteric and conjunctiva were pink and moist. Extraocular movements were intact and pupils were equal round and reactive to light. Eyelids were unremarkable. PULMONARY: Unlabored respirations. Good breath sounds bilaterally. No audible rales rhonchi or wheezing was noted. CARDIOVASCULAR: There is a regular rate and rhythm without any murmurs gallops or rubs. Patient 's chest pain is tender to palpation and patient states this is the pain she was feeling. ABDOMEN: Soft and nontender with normal bowel sounds. No palpable organomegaly was noted. There is no palpable pulsatile mass. SKIN: Skin is clear with no lesions or rashes and otherwise unremarkable. NEUROLOGIC: Patient is alert and oriented x3. Cranial nerves II through XII are grossly intact. Motor and sensory are also intact. Normal speech, volume and content. Symmetrical smile. MUSCULOSKELETAL: Normal extremities with adequate strength and full range of motion. LYMPHATICS: No significant lymphadenopathy is noted PSYCHIATRIC: Normal psychiatric evaluation. Limitations: no limitations Course Vital Signs 07/19/17 07/19/17 07/19/17 00:01 00:18 00:56 Temperature 98.1 F Pulse Rate 106 H 87 Pulse Rate [ 107 H Budget Assistant ] Respiratory 20 18 Rate Blood Pressure 138/73 120/65 O2 Sat by Pulse 98 98 Oximetry Medical Decision Making - Medical Decision Making EKG shows sinus tachycardia at 113 bpm [place] interval is 1:30 QRS is 92 QT interval 342 QTC is 469. Patient's EKG shows no ST segment elevation or depression or T-wave abnormalities noted - Lab Data Result diagrams: 07/19/17 00:10 07/19/17 00:10 Lab Results 07/19/17 07/19/17 07/19/17 Range/Units 00:10 00:10 00:10 WBC 5.8 (3.8-10.6) k/uL RBC 4.45 (3.80-5.40) m/uL Hgb 11.8 (11.4-16.0) gm/dL Hct 34.3 (34.0-46.0) % MCV 77.2 L (80.0-100.0) fL MCH 26.5 (25.0-35.0) pg MCHC 34.4 (31.0-37.0) g/dL RDW 13.9 (11.5-15.5) % Plt Count 265 (150-450) k/uL Neutrophils % 52 % Lymphocytes % 37 % Monocytes % 6 % Eosinophils % 3 % Basophils % 0 % Neutrophils # 3.0 (1.3-7.7) k/uL Lymphocytes # 2.2 (1.0-4.8) k/uL Monocytes # 0.3 (0-1.0) k/uL Eosinophils # 0.2 (0-0.7) k/uL Basophils # 0.0 (0-0.2) k/uL PT (9.0-12.0) sec INR (<1.2) APTT (22.0-30.0) sec D-Dimer (<0.60) mg/L FEU Sodium 140 (137-145) mmol/L Potassium 3.8 (3.5-5.1) mmol/L Chloride 107 (98-107) mmol/L Carbon Dioxide 18 L (22-30) mmol/L Anion Gap 15 mmol/L BUN 5 L (7-17) mg/dL Creatinine 0.50 L (0.52-1.04) mg/dL Est GFR (CKD-EPI)AfAm >90 (>60 ml/min/1.73 sqM) Est GFR (CKD-EPI)NonAf >90 (>60 ml/min/1.73 sqM) Glucose 149 H (74-99) mg/dL Calcium 9.1 (8.4-10.2) mg/dL Magnesium 1.5 L (1.6-2.3) mg/dL Total Bilirubin 0.2 (0.2-1.3) mg/dL AST 27 (14-36) U/L ALT 72 H (9-52) U/L Alkaline Phosphatase 147 H (38-126) U/L Total Creatine Kinase 70 (30-135) U/L CK-MB (CK-2) 1.5 (0.0-2.4) ng/mL CK-MB (CK-2) Rel Index 2.1 Troponin I <0.012 (0.000-0.034) ng/mL Total Protein 7.0 (6.3-8.2) g/dL Albumin 3.8 (3.5-5.0) g/dL TSH 3.530 (0.465-4.680) mIU/L Free T4 1.18 (0.78-2.19) ng/dL Urine Opiates Screen (NotDetected) Ur Oxycodone Screen (NotDetected) Urine Methadone Screen (NotDetected) Ur Propoxyphene Screen (NotDetected) Ur Barbiturates Screen (NotDetected) U Tricyclic Antidepress (NotDetected) Ur Phencyclidine Scrn (NotDetected) Ur Amphetamines Screen (NotDetected) U Methamphetamines Scrn (NotDetected) U Benzodiazepines Scrn (NotDetected) Urine Cocaine Screen (NotDetected) U Marijuana (THC) Screen (NotDetected) 07/19/17 07/19/17 07/19/17 Range/Units 00:10 00:10 01:07 WBC (3.8-10.6) k/uL RBC (3.80-5.40) m/uL Hgb (11.4-16.0) gm/dL Hct (34.0-46.0) % MCV (80.0-100.0) fL MCH (25.0-35.0) pg MCHC (31.0-37.0) g/dL RDW (11.5-15.5) % Plt Count (150-450) k/uL Neutrophils % % Lymphocytes % % Monocytes % % Eosinophils % % Basophils % % Neutrophils # (1.3-7.7) k/uL Lymphocytes # (1.0-4.8) k/uL Monocytes # (0-1.0) k/uL Eosinophils # (0-0.7) k/uL Basophils # (0-0.2) k/uL PT 9.6 (9.0-12.0) sec INR 1.0 (<1.2) APTT 22.6 (22.0-30.0) sec D-Dimer 0.33 (<0.60) mg/L FEU Sodium (137-145) mmol/L Potassium (3.5-5.1) mmol/L Chloride (98-107) mmol/L Carbon Dioxide (22-30) mmol/L Anion Gap mmol/L BUN (7-17) mg/dL Creatinine (0.52-1.04) mg/dL Est GFR (CKD-EPI)AfAm (>60 ml/min/1.73 sqM) Est GFR (CKD-EPI)NonAf (>60 ml/min/1.73 sqM) Glucose (74-99) mg/dL Calcium (8.4-10.2) mg/dL Magnesium (1.6-2.3) mg/dL Total Bilirubin (0.2-1.3) mg/dL AST (14-36) U/L ALT (9-52) U/L Alkaline Phosphatase (38-126) U/L Total Creatine Kinase (30-135) U/L CK-MB (CK-2) (0.0-2.4) ng/mL CK-MB (CK-2) Rel Index Troponin I (0.000-0.034) ng/mL Total Protein (6.3-8.2) g/dL Albumin (3.5-5.0) g/dL TSH (0.465-4.680) mIU/L Free T4 (0.78-2.19) ng/dL Urine Opiates Screen Detected H (NotDetected) Ur Oxycodone Screen Not Detected (NotDetected) Urine Methadone Screen Not Detected (NotDetected) Ur Propoxyphene Screen Not Detected (NotDetected) Ur Barbiturates Screen Not Detected (NotDetected) U Tricyclic Antidepress Not Detected (NotDetected) Ur Phencyclidine Scrn Not Detected (NotDetected) Ur Amphetamines Screen Not Detected (NotDetected) U Methamphetamines Scrn Not Detected (NotDetected) U Benzodiazepines Scrn Detected H (NotDetected) Urine Cocaine Screen Not Detected (NotDetected) U Marijuana (THC) Screen Not Detected (NotDetected) Disposition Clinical Impression: Musculoskeletal chest pain Disposition: HOME SELF-CARE Condition: Good Instructions: Musculoskeletal Pain (ED) Referrals: Matthew Nicolas MD [Primary Care Provider] - 1-2 days Time of Disposition: 02:00
[2017-07-19 00:40] LABS: Basophils % (A) 0 %; Eosinophils # (A) 0.2 k/uL (0-0.7); Eosinophils % (A) 3 %; HCT 34.3 % (34.0-46.0); HGB 11.8 gm/dL (11.4-16.0); Lymphocytes # (A) 2.2 k/uL (1.0-4.8); Lymphocytes % (A) 37 %; MCH 26.5 pg (25.0-35.0); MCHC 34.4 g/dL (31.0-37.0); MCV 77.2 fL (80.0-100.0); Mean Platelet Volume 6.8; Monocytes # (A) 0.3 k/uL (0-1.0); Monocytes % (A) 6 %; Neutrophils % (A) 52 %; Platelet Count 265 k/uL (150-450); RBC 4.45 m/uL (3.80-5.40); RDW 13.9 % (11.5-15.5); WBC 5.8 k/uL (3.8-10.6)
[2017-07-19 00:48] LABS: Partial Thromboplastin Time 22.6 sec (22.0-30.0); Prothrombin Time 9.6 sec (9.0-12.0)
[2017-07-19 00:50] LABS: ALT 72 U/L (9-52); AST 27 U/L (14-36); Albumin 3.8 g/dL (3.5-5.0); Alkaline Phosphatase 147 U/L (38-126); Anion Gap 15 mmol/L; Blood Urea Nitrogen 5 mg/dL (7-17); Calcium 9.1 mg/dL (8.4-10.2); Carbon Dioxide 18 mmol/L (22-30); Chloride 107 mmol/L (98-107); Glucose 149 mg/dL (74-99); Magnesium 1.5 mg/dL (1.6-2.3); Potassium 3.8 mmol/L (3.5-5.1); Sodium 140 mmol/L (137-145); Total Bilirubin 0.2 mg/dL (0.2-1.3)
--- NOTE | 2017-07-19 00:59 | XR ---
EXAMINATION TYPE: XR chest 2V DATE OF EXAM: 07/19/2017 COMPARISON: 06/14/2016 HISTORY: Chest pain TECHNIQUE: Frontal and lateral views of the chest are obtained. FINDINGS: Heart and mediastinum are normal. Lungs are clear. There is fusion surgery at the thoracol umbar junction. There is no pleural effusion. There are chest leads. IMPRESSION: No active cardiopulmonary disease. No change.
[2017-07-19 01:01] LABS: Creatine Kinase 70 U/L (30-135)
[2017-07-19 01:07] LABS: T4, Free (Free Thyroxine) 1.18 ng/dL (0.78-2.19)
[2017-07-19 01:14] LABS: Creatine Kinase MB 1.5 ng/mL (0.0-2.4); Troponin I <0.012 ng/mL (0.000-0.034)
[2017-07-19 01:27] LABS: Amphetamine Screen,Urine Not Detected (NotDetected); Barbiturate Screen,Urine Not Detected (NotDetected); Benzodiazepines Screen,Urine Detected (NotDetected); Cocaine Screen,Urine Not Detected (NotDetected); Methadone Screen, Urine Not Detected (NotDetected); Opiate Screen,Urine Detected (NotDetected); Oxycodone Screen, Urine Not Detected (NotDetected); Phencyclidine Screen,Urine Not Detected (NotDetected); Tricyclic Antidepressant,Urine Not Detected (NotDetected); Urn Cannabinoid Scrn Not Detected (NotDetected)
[2017-07-19 02:04] VITALS: BP 145/87; PULSE 81; RESP 16
== END 2017-07-19 02:19 | disposition home or self-care (01) ==
LOC: EC 23:57
DX: R07.89 Other chest pain (principal); F41.9 Anxiety disorder, unspecified; K21.9 Gastro-esophageal reflux disease without esophagitis; F43.10 Post-traumatic stress disorder, unspecified; F17.200 Nicotine dependence, unspecified, uncomplicated; Z79.899 Other long term (current) drug therapy; Z88.6 Allergy status to analgesic agent; Z88.5 Allergy status to narcotic agent; Z88.8 Allergy status to other drugs, medicaments and biological substances
CPT/HCPCS: 36415; 71046; 80053; 80306; 82550; 82553; 83735; 84439; 84443; 84484; 85025; 85379; 85610; 85730; 93005; 99285

== ENCOUNTER → 2017-07-30 | Outpatient (CLI) | payer OTHER | LOC: RADMRIMAIN 07:56 | DX: Z53.9 Procedure and treatment not carried out, unspecified reason (principal) ==

== ENCOUNTER → 2017-08-05 | Outpatient (CLI) | payer OTHER ==
--- NOTE | 2017-08-05 17:37 | MR ---
EXAMINATION TYPE: MR MRCP DATE OF EXAM: 08/05/2017 COMPARISON: NONE HISTORY: Rt upper Quadrant pain Standard multiplanar, multisequence MRI departmental protocol Multiplanar, multisequence images of the MRCP were acquired. FINDINGS: Exam limited due to artifact overlying the vertebral body which appears related to previous surgery and orthopedic instrumentation. This does result in some obscuration the common bile duct on the reconstruction 3-D images There are 2 areas of high signal involving the liver suggestive of hepatic cysts. The distal CBD measures 8 mm and appears dilated. There is an abrupt termination of the distal CBD. P ancreatic head has a normal appearance. There is no intrahepatic biliary dilation. No pancreatic duct dilation. Kidneys, adrenal glands and spleen have a normal appearance. Previous gallbladder surgery suspected. Aorta of normal caliber. No free fluid. Mild wall thickening of the small bowel near the insertion of the common bile duct. IMPRESSION: 1. Mild extrabiliary ductal prominence measuring 8 mm compatible with postcholecystectomy changes. No intrahepatic biliary dilation. There is mild thickening of the wall the small bowel near the inserti on of the common bile duct which could be correlated with dedicated ERCP.
== END | disposition home or self-care (01) ==
LOC: RADMRIMAIN 14:41
DX: R93.5 Abnormal findings on diagnostic imaging of other abdominal regions, including retroperitoneum (principal); R10.11 Right upper quadrant pain; Z90.49 Acquired absence of other specified parts of digestive tract
CPT/HCPCS: 74181

== ENCOUNTER → 2017-08-18 | Outpatient (CLI) | payer OTHER ==
--- NOTE | 2017-08-18 09:24 | MM ---
Reason for exam: screening (asymptomatic). Baseline mammogram. Physical Findings: Nurse did not find any significant physical abnormalities on exam. MG 3D Screening Mammo W/Cad Bilateral CC and MLO view(s) were taken. The breast tissue is heterogeneously dense. This may lower the sensitivity of mammography. Finding: There are typically benign calcifications in both breasts with no focal group. No suspicious abnormality. These results were verbally communicated with the patient and result sheet given to the patient on 08/18/17. ASSESSMENT: Benign, BI-RAD 2 RECOMMENDATION: Routine screening mammogram of both breasts in 1 year.
== END | disposition home or self-care (01) ==
LOC: RADMAMWWP 06:57
PROVIDERS: ATTEND Obstetrics & Gynecology
DX: Z12.31 Encounter for screening mammogram for malignant neoplasm of breast (principal)
CPT/HCPCS: 77063; 77067

== ENCOUNTER 2017-08-21 13:05 | Day surgery (SDC) | payer OTHER ==
[2017-08-20 08:40] VITALS: BMI 24.0
[~2017-08-21 13:05] MED LIST changes: +INDOMETHACIN 50MG SUPPOSITORY RECTAL ONE; +LACTATED RINGERS 1,000 ML IV NR; +LEVOFLOXACIN 500MG-D5W PMX 500 MG in DEXTROSE/WATER 1 100ML.BAG IVPB ONE
[2017-08-21 13:41] VITALS: TEMP 98.1
[2017-08-21] MEDS ORDERED: LIDOCAINE 1% 20 ML VIAL (10MG/ML) FOR IV START INTRADERMA ONE (13:47)
[2017-08-21 13:53] LABS: Glucose,Whole Blood 86 mg/dL (75-99)
[2017-08-21 13:57] LABS: Basophils % (A) 0 %; Eosinophils # (A) 0.1 k/uL (0-0.7); Eosinophils % (A) 2 %; HGB 12.1 gm/dL (11.4-16.0); Lymphocytes # (A) 1.8 k/uL (1.0-4.8); Lymphocytes % (A) 32 %; MCH 26.8 pg (25.0-35.0); MCHC 34.4 g/dL (31.0-37.0); MCV 77.7 fL (80.0-100.0); Mean Platelet Volume 7.2; Monocytes # (A) 0.4 k/uL (0-1.0); Monocytes % (A) 7 %; Neutrophils # (A) 3.2 k/uL (1.3-7.7); Neutrophils % (A) 57 %; Platelet Count 213 k/uL (150-450); RBC 4.51 m/uL (3.80-5.40); RDW 14.9 % (11.5-15.5); WBC 5.5 k/uL (3.8-10.6)
[2017-08-21 14:10] LABS: INR 1.1 (<1.2); Partial Thromboplastin Time 22.9 sec (22.0-30.0); Prothrombin Time 10.3 sec (9.0-12.0)
[2017-08-21 14:11] LABS: ALT 109 U/L (9-52); AST 39 U/L (14-36); Alkaline Phosphatase 115 U/L (38-126); Anion Gap 13 mmol/L; Blood Urea Nitrogen 3 mg/dL (7-17); Calcium 9.2 mg/dL (8.4-10.2); Carbon Dioxide 22 mmol/L (22-30); Chloride 106 mmol/L (98-107); Glucose 99 mg/dL (74-99); Potassium 3.5 mmol/L (3.5-5.1); Sodium 141 mmol/L (137-145); Total Bilirubin 0.4 mg/dL (0.2-1.3); Total Protein 7.2 g/dL (6.3-8.2)
[2017-08-21] MEDS ORDERED: GLYCOPYRROLATE 0.2 MG/ML 2 ML VIAL ONE (14:17)
[2017-08-21] MEDS ORDERED: LIDOCAINE 1% INJ 10MG/ML (20 ML MDV) ONE (14:17)
[2017-08-21] MEDS ORDERED: PROPOFOL 10 MG/ML 20 ML VIAL IV ONE (14:17)
[2017-08-21] MEDS ORDERED: IOPAMIDOL-300 50ML BTL MISCELLANE ONE (14:34)
[2017-08-21 14:57] VITALS: RESP 18
--- NOTE | 2017-08-21 15:07 | P.PCN ---
Date of Procedure: 08/21/17 Procedure(s) Performed: Procedure: Endoscopic retrograde cholangiopancreatography ERCP Preoperative diagnosis: Abdominal pain and abnormal MRI. Postoperative diagnosis: Slightly dilated common bile duct but no filling defects to suggest retained common bile duct stone. Normal pancreatic duct. Papilla within normal limits without any evidence of abnormality in the small intestine at the area of insertion of the pancreatic and common bile ducts. Preparation and sedation: Was provided by anesthesia. Brief clinical history: The patient is a 56-year-old female who underwent cholecystectomy in February of last year for right upper quadrant pain and cholecystitis. She continued to have issues after that and a recent MRI showed the common bile duct to be dilated to around 8 mm and there was thickening in the small intestine at the area of insertion of the common bile duct and an ERCP was suggested by the radiologist. Procedure: With the patient in the prone position and after informed consent and adequate sedation, I passed the Olympus video duodenoscope down the esophagus into the stomach then passed it through the pylorus into the duodenum and brought the papilla into view. The distal esophagus, stomach and duodenum appeared within normal limits. The papilla appeared normal and the small intestine in that area did not show any obvious abnormalities. There appeared to be separate orifices for the bile duct and the pancreatic duct. I started the exam by cannulating then injecting the common bile duct. It appeared slightly dilated but there were no filling defects or other abnormalities. The intrahepatic biliary tree appeared normal. Subsequently, I selectively cannulated the pancreatic duct and that appeared normal as well. No interventions were required and the endoscope was withdrawn. The patient tolerated the procedure well. Plan: The patient was reassured. Will follow clinically and make additional recommendations based on her course. She will follow-up with you as planned.
--- NOTE | 2017-08-21 15:18 | FL ---
Fluoroscopy HISTORY: Pain 5 seconds fluoroscopy time supplied to the referring clinician. 5 intraoperative C-arm images docume nt the procedure. See dictated report from gastroenterology.
[2017-08-21 16:18] VITALS: BP 135/85; PULSE 65
== END 2017-08-21 16:45 | disposition home or self-care (01) ==
LOC: ORWHC2ENDO 13:05
DX: K83.8 Other specified diseases of biliary tract (principal); R10.9 Unspecified abdominal pain; Z90.49 Acquired absence of other specified parts of digestive tract; K21.9 Gastro-esophageal reflux disease without esophagitis; M19.90 Unspecified osteoarthritis, unspecified site; F41.9 Anxiety disorder, unspecified; Z88.6 Allergy status to analgesic agent; Z88.5 Allergy status to narcotic agent; F17.200 Nicotine dependence, unspecified, uncomplicated; Z79.891 Long term (current) use of opiate analgesic; Z79.899 Other long term (current) drug therapy
CPT/HCPCS: 81025; 80053; 85025; 85610; 85730; 74330; 43260; J1956; J2001; J2704; Q9967

== ENCOUNTER 2017-09-22 17:35 | Emergency (ER) | payer OTHER ==
[2017-09-22] MEDS ORDERED: HYDROcodone/APAP 5-325MG 1 EACH TAB PO STA (17:50)
[2017-09-22] MEDS ORDERED: KETOROLAC 30 MG/ML 1 ML VIAL IM STA (17:50)
--- NOTE | 2017-09-22 17:53 | ED ---
Fall HPI - General Stated Complaint: Fall, ankle injury Time Seen by Provider: 09/22/17 17:37 - History of Present Illness Initial Comments: 37-year-old female patient presents to the emergency department today for evaluation of left ankle pain. Patient states that she was walking around a corner when she slipped in some thick mud and fell. States that her foot stayed stuck in the mud despite the fall. She denies hitting her head or losing consciousness during the fall. Patient states that she is now having severe left ankle pain. States it is very swollen. States that the pain is radiating up her lower leg to her knee. Patient denies any history of injury to the ankle. Denies any numbness or tingling to the foot. She denies any neck or back pain with this. Patient denies any headache, chest pain, shortness of breath, dizziness, weakness, abdominal pain, nausea, vomiting, or difficulties with bowel movements or urination. Denies any other injuries. Patient denies chance of . - Related Data Home Medications Medication Instructions Recorded Confirmed Omeprazole 40 mg PO DAILY PRN 09/16/16 09/22/17 Pregabalin [Lyrica] 150 mg PO BID PRN 09/16/16 09/22/17 LORazepam [Ativan] 1 mg PO TID 02/11/17 09/22/17 Docusate [Colace] 100 mg PO DAILY PRN 03/12/17 09/22/17 HYDROcodone/APAP 10-325MG [[place] 1 tab PO Q6H PRN 04/14/17 09/22/17 10-325] Aspirin 325 mg PO DAILY PRN 08/20/17 09/22/17 traZODone HCL [Desyrel] 100 mg PO HS 09/22/17 09/22/17 Allergies Allergy/AdvReac Type Severity Reaction Status Date / Time acetaminophen AdvReac Itching Verified 09/22/17 17:53 [From Tylenol-Codeine #3] codeine AdvReac Itching Verified 09/22/17 17:53 [From Tylenol-Codeine #3] Review of Systems ROS Statement: Those systems with pertinent positive or pertinent negative responses have been documented in the HPI. ROS Other: All systems not noted in ROS Statement are negative. Past Medical History Past Medical History: GERD/Reflux, Musculoskeletal Disorder, Osteoarthritis (OA) Additional Past Medical History / Comment(s): insomnia, lower back & neck pain; bilat leg nerve damage,pain arina legs to feet History of Any Multi-Drug Resistant Organisms: None Reported Past Surgical History: Back Surgery, Cholecystectomy Additional Past Surgical History / Comment(s): titanium ernesto insertion back Past Anesthesia/Blood Transfusion Reactions: Motion Sickness Additional Past Alcohol Use History / Comment(s): started smoking at age 19 - trying to quit; down to a few cigs a day - Past Family History Mother Family Medical History: No Reported History Father History Unknown: Yes General Exam General appearance: alert, in no apparent distress, other (This is a well- developed, well-nourished adult female patient in no acute distress.) Head exam: Present: atraumatic, normocephalic, normal inspection Eye exam: Present: normal appearance, PERRL, EOMI. Absent: scleral icterus, conjunctival injection, periorbital swelling ENT exam: Present: normal exam, normal oropharynx, mucous membranes moist Neck exam: Present: normal inspection, full ROM, other (Nontender, no step-off, no deformity to firm midline palpation of the posterior cervical spine. Full range of motion without pain or limitation.). Absent: tenderness, meningismus, lymphadenopathy Respiratory exam: Present: normal lung sounds bilaterally. Absent: respiratory distress, wheezes, rales, rhonchi, stridor Cardiovascular Exam: Present: regular rate, normal rhythm, normal heart sounds. Absent: systolic murmur, diastolic murmur, rubs, gallop, clicks GI/Abdominal exam: Present: soft, normal bowel sounds. Absent: distended, tenderness, guarding, rebound, rigid Extremities exam: Present: tenderness (Tenderness surrounding the left ankle), normal capillary refill, joint swelling (Left ankle swelling), other (Patient has left ankle swelling and mild deformity. Skin is pink, warm, and dry. Cap refills less than 3 seconds. Pedal and posttibial pulses are 2+ and equal bilaterally. Patient has distal sensation. Patient does have tenderness at the proximal tib-fib region. Pelvis is stable, no hip tenderness. ). Absent: normal inspection, full ROM (Decreased range of motion to left ankle due to increased pain with movement), pedal edema, calf tenderness Back exam: Present: normal inspection, other (Nontender, no step-off, no deformity to firm midline palpation of the thoracic and lumbar vertebrae. Full range of motion without pain or limitation.). Absent: vertebral tenderness Neurological exam: Present: alert, oriented X3, CN II-XII intact Psychiatric exam: Present: normal affect, normal mood Skin exam: Present: warm, dry, intact, normal color. Absent: rash Course Vital Signs 09/22/17 17:53 Temperature 98.6 F Pulse Rate 62 Respiratory 20 Rate Blood Pressure 118/71 O2 Sat by Pulse 100 Oximetry Procedures - Orthopedic Splinting/Casting Injury #1 Side: left Lower Extremity Injury Location: short leg, ankle Lower Extremity Immobilizer: posterior splint, stirrup splint Additional Comments: Neurovascular status intact after splint application. Skin to the toes is pink , warm, and dry. Cap refills less than 3 seconds. Medical Decision Making - Medical Decision Making 37-year-old female patient presents to the emergency department today for evaluation of left ankle pain. Physical examination did reveal swelling surrounding the left ankle and distal lower leg. Neurovascular status is intact , pedal and posttibial pulses are strong, skin is pink, warm, and dry. Cap refills less than 3 seconds. Patient does have distal sensation and motor function. X-ray was obtained and did show a severely comminuted fracture of the distal tibia and fibula. I didn't place patient in a short leg OCL, both posterior and stirrup mold's; neurovascular status remains intact after splint application. I did discuss the case with our orthopedic contracting support specialist Dr. Sweet, he recommends transfer to [facility]. I did speak to Dr. Russell who accepts transfer. I did discuss findings and plan with the patient, she is agreeable. - Radiology Data Radiology results: report reviewed, image reviewed 4 views of the left tib-fib shows comminuted fractures of the distal shaft of the tibia and fibula. The major fragments are in reasonable anatomic position. There is no dislocation. Ankle mortise appears anatomic. The knee joint appears intact. There is 50% posterior displacement of the distal fibula fragment. Impression by Dr. Estrada shows severely comminuted fractures of the distal tibia and fibula as above. I see no definite fracture extension into the ankle joint. 3 views of the left ankle are obtained. Ankle mortise is anatomic. Ankle joint spaces are normal. There are comminuted fractures of the tibia and fibula discussed in the tibia report. Impression by Dr. Estrada shows no fracture seen at the ankle joint. Disposition Clinical Impression: Comminuted fracture of shaft of tibia, Displaced comminuted fracture of shaft of fibula Disposition: OTHER INSTITUTION NOT DEFINED Condition: Serious Referrals: Matthew Nicolas MD [Primary Care Provider] - 1-2 days - Out of Hospital Transfer - Req. Specs Out of Hospital Transfer - Requested Specifics: Other Emergency Center ([facility])
--- NOTE | 2017-09-22 18:45 | XR ---
EXAMINATION TYPE: XR tibia fibula LT DATE OF EXAM: 09/22/2017 COMPARISON: NONE HISTORY: Pain after falling TECHNIQUE: 4 views FINDINGS: There is comminuted fractures of the distal shaft of the tibia and fibula. The major fragme nts are in reasonable anatomic position. There is no dislocation. Ankle mortise appears anatomic. The knee joint appears intact. There is 50% posterior displacement of the distal fibula fragment. IMPRESSION: Severely comminuted fractures of the distal tibia and fibula as above. I see no definite fracture extension to the ankle joint.
--- NOTE | 2017-09-22 18:46 | XR ---
EXAMINATION TYPE: XR ankle complete LT DATE OF EXAM: 09/22/2017 COMPARISON: NONE HISTORY: Pain after falling TECHNIQUE: 3 views FINDINGS: Ankle mortise is anatomic. Ankle joint spaces are normal. There are comminuted fractures of tibia and fibula discussed in the tibia report. IMPRESSION: No fracture seen at the ankle joint.
[2017-09-22] MEDS ORDERED: SODIUM CHLORIDE 0.9% 1,000 ML IV ONE (18:59)
[2017-09-22] MEDS ORDERED: MORPHINE SULFATE 2 MG/ML SYRINGE IVP STA (18:59)
[2017-09-22 19:26] VITALS: BP 119/67; PULSE 100; RESP 18; TEMP 98
== END 2017-09-22 20:00 | disposition short-term general hospital (02) ==
LOC: EC 17:35
DX: S82.302A Unspecified fracture of lower end of left tibia, initial encounter for closed fracture (principal); S82.832A Other fracture of upper and lower end of left fibula, initial encounter for closed fracture; G47.00 Insomnia, unspecified; F32.9 Major depressive disorder, single episode, unspecified; F41.9 Anxiety disorder, unspecified; F17.200 Nicotine dependence, unspecified, uncomplicated; Z79.899 Other long term (current) drug therapy; Z88.5 Allergy status to narcotic agent; W01.0XXA Fall on same level from slipping, tripping and stumbling without subsequent striking against object, initial encounter; Y93.01 Activity, walking, marching and hiking
CPT/HCPCS: 73590; 73610; 99284; 29515; 96374; 96361; 96372; J1885; J2270

== ENCOUNTER → 2017-12-28 | Outpatient (CLI) | payer OTHER ==
--- NOTE | 2017-12-28 13:37 | US ---
EXAMINATION TYPE: US pelvis complete transvag DATE OF EXAM: 12/28/2017 COMPARISON: CT abdomen and pelvis May 11, 2017 CLINICAL HISTORY: R10.2 pelvic pain. RLQ pain x 3-4 months, no h/o cysts, G0 TECHNIQUE: TA and TV. Transabdominal sonographic images of the pelvis were acquired. Transvaginal sonographic images were medically necessary to better assess the following anatomy: uterus and ovarie s Date of LMP: 3 weeks ago EXAM MEASUREMENTS: Uterus: 6.9 x 4.2 x 3.6 cm Endometrial Stripe: 1.2 cm Right Ovary: 2.0 x 1.9 x 1.4 cm Left Ovary: 2.4 x 2.4 x 1.8 cm 1. Uterus: Anteverted wnl 2. Endometrium: wnl 3. Right Ovary: follicles seen under 1cm 4. Left Ovary: transabdominally it appears there maybe a cyst on the left ovary but with transvagina l imaging free fluid was noted anterior to ovary and no cyst seen within. 5. Bilateral Adnexa: mild free fluid seen throughout pelvis 6. Posterior cul-de-sac: mild free fluid Uterus is better seen on transvaginal evaluation. Endometrium is within normal limits for secretory p hase of menstrual cycle. Small amount of free fluid is seen in pelvic cul-de-sac. Both ovaries are identified. No suspicious adnexal lesions are present. IMPRESSION: Small amount of free fluid in pelvis, nonspecific finding.
== END ==
LOC: RADUSWWP 09:42
PROVIDERS: ATTEND Obstetrics & Gynecology
DX: R10.2 Pelvic and perineal pain (principal)
CPT/HCPCS: 76830; 76856

== ENCOUNTER → 2018-01-05 | Outpatient (CLI) | payer OTHER ==
--- NOTE | 2018-01-06 01:33 | MR ---
EXAMINATION TYPE: MR MRCP DATE OF EXAM: 01/05/2018 COMPARISON: 08/05/2017 HISTORY: Right upper quadrant pain Standard multiplanar, multisequence MRI departmental protocol Multiplanar, multisequence images of the abdomen were acquired. FINDINGS: There is cholecystectomy. There is normal appearance of the intra and extrahepatic bile alexander ts. Common bile duct to 7 mm. Liver shows no focal defect. There is no sign of pancreatic mass. Splee n is normal. There is no hydronephrosis. Kidneys have normal size and contour. There is no adrenal ma ss. I see no evidence of retroperitoneal adenopathy. There is metal artifact in the lumbar spine. Duo denum appears normal. I see no sign of intestinal wall thickening. IMPRESSION: Negative MRCP exam. No dilated ducts. No adverse change compared to old exam.
== END | disposition home or self-care (01) ==
LOC: RADMRIMAIN 07:05
DX: R10.11 Right upper quadrant pain (principal)
CPT/HCPCS: 74181

== ENCOUNTER → 2018-01-14 | Outpatient (CLI) | payer OTHER ==
--- NOTE | 2018-01-14 16:18 | CT ---
EXAMINATION TYPE: CT abdomen pelvis wo con DATE OF EXAM: 01/14/2018 COMPARISON: Prior CT 05/11/2017 HISTORY: Calculus, kidney CT DLP: 308.7 mGycm Automated exposure control for dose reduction was used. TECHNIQUE: Helical acquisition of images from the lung bases through the pelvis. FINDINGS: Lack of contrast may compromise sensitivity. Postop changes are noted, posterior spinal fix ation at T12-L2 is again noted, there is artifact due to the hardware as on prior exam. Small umbilic al hernia contains fat. LUNG BASES: 5 mm soft tissue nodules present in the left lower lobe subpleural location on axial imag e #1, this area was not imaged on previous CT. An additional subpleural nodular density may represent scar seen on axial image 21 posteriorly right lung base shows a similar appearance. AORTA: No significant abnormality is appreciated. LIVER/GB: Patient is post cholecystectomy. Liver is stable. PANCREAS: No significant abnormality is seen. SPLEEN: No significant abnormality is seen. ADRENALS: No significant abnormality is seen. KIDNEYS: No significant abnormality is seen. No evident renal calculus. No ureteral calculus. REPRODUCTIVE ORGANS: No significant abnormality is seen. Ovaries are bulky and stable. URINARY BLADDER: No significant abnormality is seen. BOWEL: Retained fecal debris present throughout the distribution of the colon, correlate for fecal s tasis. No evident appendicitis, some luminal high dense material may represent appendicolith. There m ay be a small hiatal hernia. FREE AIR: No Free Air is visible. ASCITES: None visible. PELVIC ADENOPATHY: None visualized. RETROPERITONEAL ADENOPATHY: No Retroperitoneal Adenopathy visible. OSSEOUS STRUCTURES: Postop changes as discussed. There is a spinal curvature. Spinal fixation hardwa re is in close proximity to the medial aspect of the left kidney, screws across the vertebral bodies at L2 transgresses the right lateral margin of the vertebral body, at T12 the screws across the verte bral body also transgresses the right lateral margin of the vertebral body, hardware present at the l evel of the medial left lung base appears parenchymal at the superior margin of the fixation ernesto. Chr onic displaced transverse process fractures are noted on the right at multiple levels. IMPRESSION: POSTOP CHANGES DESCRIBED. NONCONTRAST EXAM. NO EVIDENT RENAL STONE. CORRELATE FOR FECAL STASIS. IN DETERMINATE LUNG NODULES. FOLLOW-UP RECOMMENDED. ADDITIONAL FINDINGS ABOVE.
== END | disposition home or self-care (01) ==
LOC: RADCTMAIN 12:44
PROVIDERS: ATTEND Family Medicine
DX: N20.0 Calculus of kidney (principal); Z98.1 Arthrodesis status
CPT/HCPCS: 74176

== ENCOUNTER → 2018-01-21 | Outpatient (CLI) | payer OTHER ==
--- NOTE | 2018-01-21 20:12 | CONS ---
CONSULTATION DATE OF SERVICE: 01/21/2018 37-year-old lady has [facility] for snoring and multiple awakenings from sleep. HISTORY OF PRESENT ILLNESS/SLEEP-WAKE EVALUATION: Patient usual sleep schedule from 9:00 p.m. to around 5:00 a.m. The patient sometimes has problem with falling asleep, but then she wakes up from sleep every 1 hour or 2 hours and she has multiple episodes of nocturia. She wakes up with dry mouth, panic attack, palpitation, heartburn, restless legs, sweating. She has snoring. In the morning, she feels sometimes not refreshed and she drinks 2 caffeinated beverages. Usually she does not take any naps. She cannot take naps. She has problems with memory, depression and anxiety. [place] Sleepiness Scale is 6. PAST MEDICAL HISTORY: Positive for depression, anxiety, knee problems, back problems. PAST SURGICAL HISTORY: Cholecystectomy, back surgery. MEDICATIONS: Trazodone, [place], Ativan. SOCIAL HISTORY: Positive for smoking half pack a day for about 15 years on and off. Alcohol consumption: None. FAMILY HISTORY: Sinus problems, snoring, acid reflux, ulcers, restless legs. REVIEW OF SYSTEMS: Multiple awakenings from sleep every 1 hour, episodes of anxiety and depression, back pain. PHYSICAL EXAM: GENERAL A 37-year-old lady without distress. VITAL SIGNS BP 114/74, HR 88, RR 16, height 5.3, weight 136, BMI 24, temperature 98.1, oxygen saturation on room air 99%. HEENT PERRLA, EOMI, evaluation of oropharynx showed extremely low position of soft palate. LUNGS Clear to percussion and to auscultation. Good air exchange. No wheezing or rhonchi. HEART S1, S2 regular. No murmurs, gallops, or rubs. ABDOMEN Soft and nontender. Bowel sounds are present. No organomegaly appreciated. EXTREMITIES No clubbing or cyanosis. NECK Supple, no JVD. Thyroid is not palpable. MAINTENANCE INSPECTOR Awake, alert, and oriented X3. Cranial nerves 2 to 7 intact. There is no fasciculation or atrophy. noted. No focal deficits observed. The patient has difficulties to walk secondary to pain in her legs. IMPRESSION: 1. Snoring, multiple awakenings from sleep, extremely low position of soft palate, Mallampati IV, obstructive sleep apnea-hypopnea syndrome. 2. Depression. 3. Anxiety. 4. Knee problems. 5. Status post left leg fracture. 6. Status post back surgery. 7. Status post cholecystectomy. PLAN: 1. Polysomnography for evaluation of patient's breathing during sleep. 2. CPAP/BiPAP titration if sleep study confirms obstructive sleep apnea-hypopnea syndrome. 3. Preferable position during sleep on the side. 4. No driving if patient feels any sleepiness. 5. I will see patient for follow up visit to explain results of testing and following plan. Thank you very much for referring this patient for consultation. Sincerely, Chapo Doty MD, PhD, FAASM Diplomat of [place] [employer] [place] [employer] [facility] [place] MMBRETL / TERRENCE: [id number] /
== END ==
LOC: SLEEP 16:27
PROVIDERS: ATTEND Internal Medicine
DX: G47.33 Obstructive sleep apnea (adult) (pediatric) (principal); F32.9 Major depressive disorder, single episode, unspecified; F41.9 Anxiety disorder, unspecified; M79.89 Other specified soft tissue disorders; Z98.890 Other specified postprocedural states; Z90.49 Acquired absence of other specified parts of digestive tract; Z99.89 Dependence on other enabling machines and devices; Z79.899 Other long term (current) drug therapy; Z79.891 Long term (current) use of opiate analgesic; F17.200 Nicotine dependence, unspecified, uncomplicated
CPT/HCPCS: 99211

== ENCOUNTER → 2018-07-20 | Outpatient (CLI) | payer OTHER ==
--- NOTE | 2018-07-20 15:07 | US ---
EXAMINATION TYPE: US liver DATE OF EXAM: 07/20/2018 COMPARISON: NONE CLINICAL HISTORY: R74.8 Elevated liver enzymes. Elevated liver enzymes, cholecystectomy EXAM MEASUREMENTS: Liver Length: 13.5 cm Gallbladder Wall: Surgically absent CBD: 0.7 cm Right Kidney: 9.5 x 3.5 x 3.8 cm Pancreas: Obscured by bowel gas Liver: appears wnl Gallbladder: Surgically absent Evidence for sonographic Diego's sign: no CBD: appears wnl Right Kidney: no evidence of hydronephrosis IMPRESSION: 1. No suspicious acute ultrasound abnormality right upper quadrant.
== END | disposition home or self-care (01) ==
LOC: RADUSWWP 08:20
PROVIDERS: ATTEND Family Medicine
DX: R74.8 Abnormal levels of other serum enzymes (principal)
CPT/HCPCS: 76705

== ENCOUNTER → 2018-08-24 | Outpatient (CLI) | payer OTHER | END | disposition home or self-care (01) | LOC: LABWHC1 14:49 | PROVIDERS: ATTEND Obstetrics & Gynecology | DX: N92.6 Irregular menstruation, unspecified (principal) | CPT/HCPCS: 36415; 84702 ==

== ENCOUNTER → 2018-10-14 | Outpatient (CLI) | payer OTHER ==
--- NOTE | 2018-10-15 11:31 | MM ---
Reason for exam: screening (asymptomatic). Last mammogram was performed 1 year and 2 months ago. Physical Findings: A clinical breast exam by your physician is recommended on an annual basis and results should be correlated with mammographic findings. MG 3D Screening Mammo W/Cad Bilateral CC and MLO view(s) were taken. Prior study comparison: August 18, 2017, bilateral MG 3d screening mammo w/cad. The breast tissue is extremely dense which could obscure a lesion on mammography. There are benign appearing round calcifications bilaterally. There is no discrete abnormality. ASSESSMENT: Benign, BI-RAD 2 RECOMMENDATION: Routine screening mammogram of both breasts in 1 year.
== END | disposition home or self-care (01) ==
LOC: RADMAMWWP 09:48
PROVIDERS: ATTEND Family Medicine
DX: Z12.31 Encounter for screening mammogram for malignant neoplasm of breast (principal)
CPT/HCPCS: 77063; 77067

== ENCOUNTER 2020-03-09 14:42 | Emergency (ER) | payer OTHER ==
--- NOTE | 2020-03-09 15:22 | ED ---
Nausea/Vomiting/Diarrhea HPI - General Chief complaint: Nausea/Vomiting/Diarrhea Stated complaint: Nausea Time Seen by Provider: 03/09/20 15:22 Source: patient Mode of arrival: ambulatory Limitations: no limitations - History of Present Illness Initial comments: Patient is a 39-year-old female presenting to emergency Department with the chief complaint nausea vomiting and abdominal pain. Patient reported symptoms of approximately one week. States she has developed nausea and multiple episodes of nonbilious and nonbloody vomiting. She also reports lower abdominal pain. States that she was recently treated for UTI but only took a few doses of the antibiotics before and stopped taking it because it made her nauseous. She does report history of cholecystectomy. She denies the possibility for . She denies any chest pain or shortness of breath. Denies any urinary vaginal symptoms. - Related Data Home Medications Medication Instructions Recorded Confirmed Omeprazole 40 mg PO DAILY PRN 09/16/16 09/22/17 Pregabalin [Lyrica] 150 mg PO BID PRN 09/16/16 09/22/17 LORazepam [Ativan] 1 mg PO TID 02/11/17 09/22/17 Docusate [Colace] 100 mg PO DAILY PRN 03/12/17 09/22/17 HYDROcodone/APAP 10-325MG [[place] 1 tab PO Q6H PRN 04/14/17 09/22/17 10-325] Aspirin 325 mg PO DAILY PRN 08/20/17 09/22/17 traZODone HCL [Desyrel] 100 mg PO HS 09/22/17 09/22/17 Previous Rx's Medication Instructions Recorded Ondansetron Odt [Zofran Odt] 4 mg PO Q8HR PRN #20 tab 03/09/20 Allergies Allergy/AdvReac Type Severity Reaction Status Date / Time acetaminophen AdvReac Itching Verified 09/22/17 17:53 [From Tylenol-Codeine #3] codeine AdvReac Itching Verified 09/22/17 17:53 [From Tylenol-Codeine #3] Review of Systems ROS Statement: Those systems with pertinent positive or pertinent negative responses have been documented in the HPI. ROS Other: All systems not noted in ROS Statement are negative. Past Medical History Past Medical History: GERD/Reflux, Musculoskeletal Disorder, Osteoarthritis (OA) Additional Past Medical History / Comment(s): insomnia, lower back & neck pain; bilat leg nerve damage,pain arina legs to feet History of Any Multi-Drug Resistant Organisms: None Reported Past Surgical History: Back Surgery, Cholecystectomy Additional Past Surgical History / Comment(s): titanium ernesto insertion back Past Anesthesia/Blood Transfusion Reactions: Motion Sickness Past Psychological History: Anxiety, Depression, PTSD Past Alcohol Use History: None Reported Past Drug Use History: None Reported - Past Family History Mother Family Medical History: No Reported History Father History Unknown: Yes General Exam Limitations: no limitations General appearance: alert, in no apparent distress Head exam: Present: atraumatic, normocephalic, normal inspection Eye exam: Present: normal appearance, PERRL, EOMI Pupils: Present: normal accommodation ENT exam: Present: normal exam, normal oropharynx, mucous membranes moist, TM's normal bilaterally, normal external ear exam Neck exam: Present: normal inspection, full ROM. Absent: tenderness Respiratory exam: Present: normal lung sounds bilaterally. Absent: respiratory distress, wheezes, rales Cardiovascular Exam: Present: regular rate, normal rhythm, normal heart sounds. Absent: systolic murmur, diastolic murmur GI/Abdominal exam: Present: soft, tenderness (Lower abdominal tenderness. Posit hany McBurney point. Negative Rovsing up-to-date.). Absent: distended, guarding, rebound Extremities exam: Present: normal inspection, full ROM, normal capillary refill. Absent: tenderness, pedal edema, joint swelling, calf tenderness Back exam: Present: normal inspection, full ROM. Absent: tenderness, CVA tenderness (R), CVA tenderness (L) Neurological exam: Present: alert, oriented X3, normal gait Psychiatric exam: Present: normal affect, normal mood Skin exam: Present: warm, dry, intact, normal color Course Vital Signs 03/09/20 03/09/20 14:54 18:35 Temperature 98.3 F 97.6 F Pulse Rate 77 90 Respiratory 18 16 Rate Blood Pressure 123/83 121/59 O2 Sat by Pulse 98 97 Oximetry Medical Decision Making - Medical Decision Making 39-year-old female presenting to emergency Department with a chief complaint of abdominal pain nausea vomiting. On physical examination, patient does have lower abdominal tenderness, particularly right lower quadrant a positive McBurney point. Negative Rovsing or obturator. CBC is unremarkable. CMP revealed transaminitis. Patient does not have a gallbladder. UA unremarkable. Patient is not . Patient was given antiemetics and IV fluids. On reevaluation, patient reports improvement in symptoms. Patient will be discharged with Zofran and omeprazole. I also gave the patient multiple recommendations for primary care physician. Strict return parameters were thoroughly discussed patient was upsetting agreeable. Case discussed with physician. - Lab Data Result diagrams: 03/09/20 15:32 03/09/20 15:32 Lab Results 03/09/20 03/09/20 03/09/20 Range/Units 15:32 15:32 15:32 WBC 4.4 (3.8-10.6) k/uL RBC 4.94 (3.80-5.40) m/uL Hgb 14.2 (11.4-16.0) gm/dL Hct 40.7 (34.0-46.0) % MCV 82.3 (80.0-100.0) fL MCH 28.8 (25.0-35.0) pg MCHC 34.9 (31.0-37.0) g/dL RDW 12.8 (11.5-15.5) % Plt Count 186 (150-450) k/uL MPV 6.8 Neutrophils % 47 % Lymphocytes % 37 % Monocytes % 8 % Eosinophils % 5 % Basophils % 1 % Neutrophils # 2.1 (1.3-7.7) k/uL Lymphocytes # 1.6 (1.0-4.8) k/uL Monocytes # 0.4 (0-1.0) k/uL Eosinophils # 0.2 (0-0.7) k/uL Basophils # 0.0 (0-0.2) k/uL Sodium (137-145) mmol/L Potassium (3.5-5.1) mmol/L Chloride (98-107) mmol/L Carbon Dioxide (22-30) mmol/L Anion Gap mmol/L BUN (7-17) mg/dL Creatinine (0.52-1.04) mg/dL Est GFR (CKD-EPI)AfAm (>60 ml/min/1.73 sqM) Est GFR (CKD-EPI)NonAf (>60 ml/min/1.73 sqM) Glucose (74-99) mg/dL Calcium (8.4-10.2) mg/dL Total Bilirubin (0.2-1.3) mg/dL AST (14-36) U/L ALT (4-34) U/L Alkaline Phosphatase (38-126) U/L Total Protein (6.3-8.2) g/dL Albumin (3.5-5.0) g/dL Lipase (23-300) U/L Urine Color Yellow Urine Appearance Cloudy H (Clear) Urine pH 7.0 (5.0-8.0) Ur Specific [place] 1.018 (1.001-1.035) Urine Protein Negative (Negative) Urine Glucose (UA) Negative (Negative) Urine Ketones Negative (Negative) Urine Blood Negative (Negative) Urine Nitrite Negative (Negative) Urine Bilirubin Negative (Negative) Urine Urobilinogen <2.0 (<2.0) mg/dL Ur Leukocyte Esterase Trace H (Negative) Urine RBC 2 (0-5) /hpf Urine WBC 2 (0-5) /hpf Ur Squamous Epith Cells 14 H (0-4) /hpf Urine Bacteria Occasional H (None) /hpf Urine Mucus Rare H (None) /hpf Urine HCG, Qual Not Detected (Not Detectd) 03/09/20 Range/Units 15:32 WBC (3.8-10.6) k/uL RBC (3.80-5.40) m/uL Hgb (11.4-16.0) gm/dL Hct (34.0-46.0) % MCV (80.0-100.0) fL MCH (25.0-35.0) pg MCHC (31.0-37.0) g/dL RDW (11.5-15.5) % Plt Count (150-450) k/uL MPV Neutrophils % % Lymphocytes % % Monocytes % % Eosinophils % % Basophils % % Neutrophils # (1.3-7.7) k/uL Lymphocytes # (1.0-4.8) k/uL Monocytes # (0-1.0) k/uL Eosinophils # (0-0.7) k/uL Basophils # (0-0.2) k/uL Sodium 136 L (137-145) mmol/L Potassium 4.1 (3.5-5.1) mmol/L Chloride 101 (98-107) mmol/L Carbon Dioxide 27 (22-30) mmol/L Anion Gap 8 mmol/L BUN 12 (7-17) mg/dL Creatinine 0.47 L (0.52-1.04) mg/dL Est GFR (CKD-EPI)AfAm >90 (>60 ml/min/1.73 sqM) Est GFR (CKD-EPI)NonAf >90 (>60 ml/min/1.73 sqM) Glucose 100 H (74-99) mg/dL Calcium 9.7 (8.4-10.2) mg/dL Total Bilirubin 0.6 (0.2-1.3) mg/dL AST 76 H (14-36) U/L ALT 124 H (4-34) U/L Alkaline Phosphatase 153 H (38-126) U/L Total Protein 8.0 (6.3-8.2) g/dL Albumin 4.2 (3.5-5.0) g/dL Lipase 50 (23-300) U/L Urine Color Urine Appearance (Clear) Urine pH (5.0-8.0) Ur Specific [place] (1.001-1.035) Urine Protein (Negative) Urine Glucose (UA) (Negative) Urine Ketones (Negative) Urine Blood (Negative) Urine Nitrite (Negative) Urine Bilirubin (Negative) Urine Urobilinogen (<2.0) mg/dL Ur Leukocyte Esterase (Negative) Urine RBC (0-5) /hpf Urine WBC (0-5) /hpf Ur Squamous Epith Cells (0-4) /hpf Urine Bacteria (None) /hpf Urine Mucus (None) /hpf Urine HCG, Qual (Not Detectd) Disposition Clinical Impression: Abdominal pain Disposition: HOME SELF-CARE Condition: Stable Instructions (If sedation given, give patient instructions): Abdominal Pain (ED) Additional Instructions: Take prescribed medication as directed. Follow with primary care physician. Return to emergency department if symptoms worsen. Prescriptions: Ondansetron Odt [Zofran Odt] 4 mg PO Q8HR PRN #20 tab PRN Reason: Nausea Is patient prescribed a controlled substance at d/c from ED?: No Referrals: Nonstaff,Physician [Primary Care Provider] - 1-2 days Matthew Tran MD [STAFF PHYSICIAN] - 1-2 days Dontrell Merchant MD [REFERRING] - 1-2 days Marko Gaitan MD [REFERRING] - 1-2 days Jemma Cao MD [Medical Doctor] - 1-2 days Time of Disposition: 18:01
[2020-03-09] MEDS ORDERED: SODIUM CHLORIDE 0.9% 1,000 ML IV STA (15:36)
[2020-03-09] MEDS ORDERED: ONDANSETRON 4 MG/2 ML VIAL IVP STA (15:37)
[2020-03-09 16:09] LABS: Basophils % (A) 1 %; Eosinophils # (A) 0.2 k/uL (0-0.7); Eosinophils % (A) 5 %; HCT 40.7 % (34.0-46.0); HGB 14.2 gm/dL (11.4-16.0); Lymphocytes # (A) 1.6 k/uL (1.0-4.8); Lymphocytes % (A) 37 %; MCH 28.8 pg (25.0-35.0); MCHC 34.9 g/dL (31.0-37.0); MCV 82.3 fL (80.0-100.0); Mean Platelet Volume 6.8; Monocytes # (A) 0.4 k/uL (0-1.0); Monocytes % (A) 8 %; Neutrophils # (A) 2.1 k/uL (1.3-7.7); Neutrophils % (A) 47 %; Platelet Count 186 k/uL (150-450); RBC 4.94 m/uL (3.80-5.40); RDW 12.8 % (11.5-15.5); WBC 4.4 k/uL (3.8-10.6)
[2020-03-09 16:16] LABS: Appearance,Urine Cloudy (Clear); Bacteria,Urine Occasional /hpf; Bilirubin,Urine Negative (Negative); Blood,Urine Negative (Negative); Color,Urine Yellow; Glucose,Urine (UA) Negative (Negative); Ketones,Urine Negative (Negative); Leukocyte Esterase,Urine Trace (Negative); Mucus,Urine Rare /hpf; Nitrite,Urine Negative (Negative); Protein,Urine Negative (Negative); RBC,Urine 2 /hpf (0-5); Specific Gravity,Urine 1.018 (1.001-1.035); Squamous Epithelial Cell,Urine 14 /hpf (0-4); Urobilinogen,Urine <2.0 mg/dL (<2.0); WBC,Urine 2 /hpf (0-5)
[2020-03-09 16:26] LABS: ALT 124 U/L (4-34); AST 76 U/L (14-36); African American GFR (CKD) >90 (>60 ml/min/1.73 sqM); Albumin 4.2 g/dL (3.5-5.0); Alkaline Phosphatase 153 U/L (38-126); Anion Gap 8 mmol/L; Blood Urea Nitrogen 12 mg/dL (7-17); Calcium 9.7 mg/dL (8.4-10.2); Carbon Dioxide 27 mmol/L (22-30); Chloride 101 mmol/L (98-107); Glucose 100 mg/dL (74-99); Lipase 50 U/L (23-300); Non-African American GFR(CKD) >90 (>60 ml/min/1.73 sqM); Potassium 4.1 mmol/L (3.5-5.1); Sodium 136 mmol/L (137-145); Total Bilirubin 0.6 mg/dL (0.2-1.3)
--- NOTE | 2020-03-09 17:39 | CT ---
EXAMINATION TYPE: CT abdomen pelvis w con DATE OF EXAM: 03/09/2020 COMPARISON: 01/14/2018 HISTORY: RLQ abdominal pain CT DLP: 728.4 mGycm Automated exposure control for dose reduction was used. CONTRAST: Performed with IV Contrast, patient injected with 100 ml mL of Isovue 300. Lung bases are clear of consolidation. There is no pleural effusion. There is minimal subsegmental at electasis at the left posterior lung base. Heart size is normal. There is no pericardial effusion. Liver spleen stomach pancreas appear normal. Bile ducts are not dilated. There are clips from cholecy stectomy. Kidneys show satisfactory contrast opacification. There is no hydronephrosis. There is no adrenal mas s. Delayed images show normal renal excretion. Ureters are not dilated. Bladder distends smoothly. Th ere is no inguinal hernia. Uterus is anteverted. There is no mesenteric edema. There is no ascites or free air. There is no bowel obstruction. Appendi x is not definitely seen. There is no sign of thickened appendix. There is L1 and T12 mild anterior wedging with slight kyphotic deformity and anterior fusion surgery from T12 to L2 vertebra.. There are rods and screws fusing the spine on the left side. The bony pelvi s is intact. Hip joints are intact. IMPRESSION: Appendix not seen. No sign of thickened appendix. No sign of acute abdomen and pelvis. Spinal surgery noted unchanged.
[2020-03-09 18:37] VITALS: BP 121/59; PULSE 90; RESP 16; TEMP 97.6
== END 2020-03-09 18:35 | disposition home or self-care (01) ==
LOC: EC 14:42
DX: R10.30 Lower abdominal pain, unspecified (principal); R74.02 Elevation of levels of lactic acid dehydrogenase [LDH]; K21.9 Gastro-esophageal reflux disease without esophagitis; M19.90 Unspecified osteoarthritis, unspecified site; F41.9 Anxiety disorder, unspecified; F32.9 Major depressive disorder, single episode, unspecified; G47.00 Insomnia, unspecified; Z79.899 Other long term (current) drug therapy; Z88.5 Allergy status to narcotic agent; Z88.8 Allergy status to other drugs, medicaments and biological substances; Z90.49 Acquired absence of other specified parts of digestive tract
CPT/HCPCS: 36415; 80053; 83690; 85025; 81001; 81025; 74177; 99284; 96374; 96361 ×2; J2405; Q9967

== ENCOUNTER → 2020-07-26 | Outpatient (CLI) | payer OTHER ==
--- NOTE | 2020-07-30 10:45 | MM ---
Reason for exam: screening (asymptomatic). Last mammogram was performed 1 year and 9 months ago. Physical Findings: A clinical breast exam by your physician is recommended on an annual basis and results should be correlated with mammographic findings. MG Screening Mammo w CAD Bilateral CC and MLO view(s) were taken. Prior study comparison: October 14, 2018, bilateral MG 3d screening mammo w/cad. August 18, 2017, bilateral MG 3d screening mammo w/cad. The breast tissue is heterogeneously dense. This may lower the sensitivity of mammography. Global asymmetry right superiorly, unchanged. No significant changes when compared with prior studies. ASSESSMENT: Benign, BI-RAD 2 RECOMMENDATION: Routine screening mammogram of both breasts in 1 year. Patient should continue monthly self breast exams. A negative report should not preclude additional follow up of suspicious palpable abnormalities.
== END | disposition home or self-care (01) ==
LOC: RADMAMWWP 15:55
PROVIDERS: ATTEND Nurse Practitioner Family
DX: Z12.31 Encounter for screening mammogram for malignant neoplasm of breast (principal)
CPT/HCPCS: 77067

== ENCOUNTER → 2021-10-02 | Outpatient (CLI) | payer OTHER ==
--- NOTE | 2021-10-06 21:38 | MM ---
Reason for Exam: Screening (asymptomatic). Last mammogram was performed 1 year(s) and 2 month(s) ago. Patient History: Menarche at age 17. Patient has no children. Last menstrual period: 09/26/2021 Risk Values: Anay 5 year model risk: 0.6%. NCI Lifetime model risk: 10.1%. Prior Study Comparison: 08/18/2017 Bilateral Screening Mammogram, [facility]. 10/14/2018 Bilateral Screening Mammogram, [facility]. 07/26/2020 Bilateral Screening Mammogram, [facility]. Tissue Density: The breast tissue is extremely dense which could obscure a lesion on mammography. Findings: Analyzed By CAD. Possible partially obscured mass measuring 3.5 cm superior right MLO view. Very dense island of tissue as possible. Further ultrasound evaluation is recommended. Benign well cystic calcifications inferiorly on the left. Otherwise, no significant change. Overall Assessment: Incomplete: need additional imaging evaluation, BI-RAD 0 Management: Additional Views of the right breast. Whole right breast ultrasound. Particular attention to the superior half to exclude an underlying 3.5 cm cyst or mass. Electronically signed and approved by: Shelton Dozier M.D. Radiologist
== END | disposition home or self-care (01) ==
LOC: RADMAMWWP 11:03
PROVIDERS: ATTEND Physician Assistant
DX: Z12.31 Encounter for screening mammogram for malignant neoplasm of breast (principal)
CPT/HCPCS: 77063; 77067

== ENCOUNTER → 2021-10-30 | Outpatient (CLI) | payer OTHER ==
--- NOTE | 2021-10-30 11:07 | USB ---
Patient History: Menarche at age 17. Patient has no children. Risk Values: Anay 5 year model risk: 0.6%. NCI Lifetime model risk: 10.1%. Prior Study Comparison: 10/14/2018 Bilateral Screening Mammogram, [facility]. 07/26/2020 Bilateral Screening Mammogram, [facility]. 10/02/2021 Bilateral MG 3D screening mammo w/cad, [facility]. Findings: The whole breast of the right breast, the axilla of the right breast and the retroareolar of the right breast were scanned. There are 2 hypoechoic areas with through transmission. These are small and smooth wall more difficult to confirm. At the 10:00 position 3 cm from the nipple this measures 0 point for by 0.4 x 0.3 cm. At the 1:00 position this measures 0.4 x 0.5 x 0.4 cm. Findings are likely related to small cysts. Overall Assessment: Probably benign, BI-RAD 3 Management: Diagnostic Mammogram of the right breast in 6 months. Diagnostic Breast Ultrasound of the right breast in 6 months. A clinical breast exam by your physician is recommended on an annual basis and results should be correlated with mammographic findings. Electronically signed and approved by: Cameron Feldman D.O. Radiologis
== END | disposition home or self-care (01) ==
LOC: RADMAMWWP 09:54
DX: R92.8 Other abnormal and inconclusive findings on diagnostic imaging of breast (principal)

== ENCOUNTER → 2022-05-05 | Outpatient (CLI) | payer OTHER ==
--- NOTE | 2022-05-05 14:41 | MM ---
Reason for Exam: Follow-up at short interval from prior study. Last screening mammogram was performed 7 month(s) ago. Patient History: Menarche at age 17. Patient has no children. Risk Values: Anay 5 year model risk: 0.6%. NCI Lifetime model risk: 10.1%. Prior Study Comparison: 10/14/2018 Bilateral Screening Mammogram, [facility]. 07/26/2020 Bilateral Screening Mammogram, [facility]. 10/02/2021 Bilateral MG 3D screening mammo w/cad, [facility]. Tissue Density: Right: The breast tissue is extremely dense which could obscure a lesion on mammography. Findings: Analyzed By CAD. New suspicious masses or worrisome cluster microcalcifications within the right breast. Similar asymmetric increased density within the upper outer right breast. Overall Assessment: Incomplete: need additional imaging evaluation, BI-RAD 0 Management: Diagnostic Breast Ultrasound of the right breast. A clinical breast exam by your physician is recommended on an annual basis and results should be correlated with mammographic findings. This exam should not preclude additional follow-up of suspicious palpable abnormalities. Results were given to the patient verbally at the time of exam. Electronically signed and approved by: Shankar Farmer D.O.
--- NOTE | 2022-05-05 15:05 | USB ---
Reason for Exam: Follow-up at short interval from prior study. Patient History: Menarche at age 17. Patient has no children. Risk Values: Anay 5 year model risk: 0.6%. NCI Lifetime model risk: 10.1%. Technique: Method: Targeted. Patient Position: Supine. Prior Study Comparison: 10/14/2018 Bilateral Screening Mammogram, [facility]. 07/26/2020 Bilateral Screening Mammogram, [facility]. 10/02/2021 Bilateral MG 3D screening mammo w/cad, [facility]. Findings: The upper section of the breast of the right breast, the axilla of the right breast and the retroareolar of the right breast were scanned. Targeted ultrasound of the right breast at 9-1 o'clock was performed with additional evaluation of the nipple and x-ray tail. Stable anechoic cyst at 10:00 3 sagittal and nipple measuring 0.4 x 0.3 x 0.3 cm. Stable anechoic cyst at 1:00 7 cm from the nipple measuring 0.5 x 0.5 x 0.3 cm. Overall Assessment: Benign, BI-RAD 2 Management: Screening Mammogram of both breasts in 6 months. A clinical breast exam by your physician is recommended on an annual basis and results should be correlated with mammographic findings. This exam should not preclude additional follow-up of suspicious palpable abnormalities. Results were given to the patient verbally at the time of exam. Electronically signed and approved by: Shankar Farmer D.O.
== END | disposition home or self-care (01) ==
LOC: RADMAMWWP 14:08
DX: R92.8 Other abnormal and inconclusive findings on diagnostic imaging of breast (principal)
CPT/HCPCS: 77065; 76642; G0279; 77061

== ENCOUNTER → 2022-09-23 | Outpatient (CLI) | payer OTHER ==
[2022-09-23 19:23] LABS: Basophils # (A) 0.05 X 10*3/uL (0.00-0.10); Basophils % (A) 0.9 %; Eosinophils # (A) 0.15 X 10*3/uL (0.04-0.35); Eosinophils % (A) 2.8 %; HCT 42.1 % (37.2-46.3); HGB 13.9 d/dL (12.0-15.0); Lymphocytes # (A) 1.88 X 10*3/uL (0.90-5.00); Lymphocytes % (A) 35.7 %; MCH 27.6 pg (27.0-32.0); MCV 83.5 FL (80.0-97.0); Mean Platelet Volume 10.5 FL (9.5-12.2); Monocytes # (A) 0.53 X 10*3/uL (0.20-1.00); Monocytes % (A) 10.1 %; NRBC Per 100 WBC 0 X 10*3/uL (0.00-0.01); Neutrophils # (A) 2.63 X 10*3/uL (1.80-7.70); Neutrophils % (A) 49.9 %; Platelet Count 246 X 10*3/uL (140-440); RBC 5.04 X 10*6/uL (4.10-5.20); RDW 13.5 % (11.5-14.5); WBC 5.27 X 10*3/uL (4.50-10.00)
[2022-09-24 05:22] LABS: % Iron Saturation 12.81 (12.00-45.00); ALT 157 U/L (8-44); AST 100 U/L (13-35); Albumin 4.5 d/dL (3.8-4.9); Albumin/Globulin Ratio 1.32 Ratio (1.60-3.17); Alkaline Phosphatase 280 U/L (41-126); Blood Urea Nitrogen 8.8 mg/dL (9.0-27.0); Calcium 9.8 mg/dL (8.7-10.3); Carbon Dioxide 27.6 mmol/L (21.6-31.8); Ceruloplasmin 30.8 mg/dL (20.0-60.0); Chloride 99 mmol/L (96-109); Ferritin 95.4 ng/mL (10.0-291.0); Globulin 3.4 d/dL (1.6-3.3); Glucose 78 mg/dL (70-110); Iron 56 UG/DL (50-170); Potassium 4.8 mmol/L (3.5-5.5); Sodium 137 mmol/L (135-145); Total Bilirubin 0.4 mg/dL (0.3-1.2); Total Iron Binding Capacity 437 UG/DL (228-460); Total Protein 7.9 d/dL (6.2-8.2)
[2022-09-24 05:23] LABS: Hepatitis B Surface Antigen Nonreactive; Hepatitis C IgG Antibody Nonreactive
[2022-09-24 13:04] LABS: Smooth Muscle Antibody 5 UNITS (<20)
== END | disposition home or self-care (01) ==
LOC: LABWHC1 08:53
PROVIDERS: ATTEND Nurse Practitioner Family
DX: R74.01 Elevation of levels of liver transaminase levels (principal)
CPT/HCPCS: 36415; 80053; 82103; 82390; 82728; 83516; 83540; 83550; 84165; 85025; 86038; 86803; 87340

== ENCOUNTER → 2022-10-14 | Outpatient (CLI) | payer OTHER ==
[2022-10-14 16:42] LABS: Albumin 4.5 d/dL (3.8-4.9)
[2022-10-15 17:22] LABS: Gamma Globulin 1.58 d/dL (0.70-1.50)
== END | disposition home or self-care (01) ==
LOC: LABWHC1 11:19
PROVIDERS: ATTEND Nurse Practitioner Family
DX: R74.01 Elevation of levels of liver transaminase levels (principal)
CPT/HCPCS: 36415; 84165

== ENCOUNTER → 2023-10-16 | Outpatient (CLI) | payer OTHER ==
--- NOTE | 2023-10-23 21:33 | MM ---
Reason for Exam: Screening (asymptomatic). Last mammogram was performed 2 year(s) and 1 month(s) ago. Patient History: Menarche at age 17. Patient has no children. Risk Values: Anay 5 year model risk: 0.7%. NCI Lifetime model risk: 9.9%. Prior Study Comparison: 07/26/2020 Bilateral Screening Mammogram, [facility]. 10/02/2021 Bilateral MG 3D screening mammo w/cad, [facility]. 05/05/2022 Right MG 3D diag mammo w/cad RT, [facility]. Tissue Density: The breasts are extremely dense, which lowers the sensitivity of mammography. Findings: Analyzed By CAD. Unchanged rounded global asymmetry superior posterior right MLO view. Scattered benign punctate and round calcifications redemonstrated. There is no suspicious group of microcalcifications or new suspicious mass in either breast. Overall Assessment: Benign, BI-RAD 2 Management: Screening Mammogram of both breasts in 1 year. Surgical Consultation of both breasts. The technologist reports that the patient has bilateral breast discharge, clear on the left, green on the right. Suspicious discharge that would warrant further evaluation includes spontaneous clear or bloody discharge localized to a single pore on the nipple. If the patient experiences this, recommend surgical evaluation. Patient should continue monthly self-breast exams. A clinical breast exam by your physician is recommended on an annual basis. This exam should not preclude additional follow-up of suspicious palpable abnormalities. Note on Anay scores and lifetime risk: 1. A Anay score greater than 3% is considered moderate risk. If this is the case, consider specialist referral to assess eligibility for a risk reducing agent. 2. If overall lifetime risk for the development of breast cancer is 20% or higher, the patient may qualify for future screening with alternating mammogram and breast MRI. Electronically signed and approved by: Shelton Dozier M.D. Radiologist
== END | disposition home or self-care (01) ==
LOC: RADMAMWWP 10:00
PROVIDERS: ATTEND Internal Medicine Addiction Medicine
DX: Z12.31 Encounter for screening mammogram for malignant neoplasm of breast (principal); R92.343 Mammographic extreme density, bilateral breasts
CPT/HCPCS: 77063; 77067